=== PATIENT | female | born 1965 | race Caucasian/White ===

== ENCOUNTER 2020-10-31 10:44 | Emergency (ER) | payer MEDICAID, SELFPAY ==
[2020-10-31 10:46] VITALS: BP 148/72; PULSE 76; RESP 16; TEMP 36.9; O2SAT 98; BMI 28.3
--- NOTE | 2020-10-31 11:27 | HMH.EDUTC ---
[facility] [facility] [place] Clinical Impression: Neuropathic pain Leg weakness Qualifiers: Laterality: bilateral Qualified Code(s): R29.898 - Other symptoms and signs involving the musculoskeletal system Disposition: Home, Self-Care Condition on Discharge: Good Additional Instructions: Follow up with the neurologist regarding your symptoms. You will need an EMG. A neurologist is the one that can order that and evaluate you further. Follow up with your primary care provider. Take naproxen for pain. I sent in a prescription to your pharmacy. GO TO THE ER FOR ANY WORSENING SYMPTOMS OR CONCERNS Prescriptions: Naproxen [Naproxen 500mg tab] 500 mg PO BIDP PRN #30 tab PRN Reason: Moderate Pain Transmission Status: Received by [facility] Referrals: Lillian Callejas APRN [Primary Care Provider] - Katherine Gomez MD [Staff Physician] - Time of Disposition: 11:56 Medical Decision Making - Medical Records Medical records reviewed: No: I reviewed the patient's medical records. - Sal Inquiry Pt receiving controlled substance: No Vital Signs: 10/31/20 10:46 10/31/20 11:57 Temperature 98.4 F 98.4 F Temperature Source Oral Pulse Rate 76 Pulse Rate [Right] 76 Respiratory Rate 16 16 Blood Pressure 148/72 H Blood Pressure [Right Arm] 148/72 H Blood Pressure Mean [Right Arm] 97 Blood Pressure Source Automatic Cuff Blood Pressure Source [Right Arm] Automatic Cuff Blood Pressure Position Sitting Blood Pressure Position [Right Arm] Sitting 02 Sat by Pulse Oximetry 98 Oxygen Delivery Method Room Air Room Air [facility] [place] - General Stated complaint: toes shayy, 10-21-20 leg numbness Time Seen by Provider: 10/31/20 11:27 Mode of Arrival: Ambulatory Source of Information: Patient Limitations: No Limitations Description of Symptoms (Recalled from Triage Doc. by RN): Pt advises she has been experinecing numbness in her hands and legs that has been ongoing for 2 years. HAs numbness whe she tries to grasp something, advises she fell the other day because her legs went numb HEENT Symptoms (Recalled from RN notes): No Resp Symptoms (Recalled from RN notes): No Skin Symptoms (Recalled from RN notes): No MS Symptoms (Recalled from RN notes): No Functional Status (Recalled from RN notes): na - History of Present Illness Provider Complaint: She has been having frequent symptoms of leg weakness, foot numbness, and hand numbness. Her symptoms have been equal bilaterally. - Related Data Home Medications Medication Instructions Recorded Confirmed Buspirone HCl [Buspirone 30mg 30 mg PO DAILY 12/08/18 12/08/18 Tablets] Cetirizine HCl [Zyrtec] 10 mg PO DAILY 12/08/18 12/08/18 Diclofenac Sodium [Diclofenac 75mg 75 mg PO BID 12/08/18 12/08/18 Tab] Fluoxetine HCl 40 mg PO DAILY 12/08/18 12/08/18 Metoprolol Tartrate [Lopressor 25 mg PO BID 12/08/18 12/08/18 25mg tablet] Multivit,Calc,Mins/Iron/Folic 1 each PO DAILY 12/08/18 12/08/18 [Women's Daily Caplet] Pantoprazole Sodium [Protonix 40mg 40 mg PO DAILY 12/08/18 12/08/18 tablet] Pravastatin Sodium 80 mg PO DAILY 12/08/18 12/08/18 Previous Rx's Medication Instructions Recorded hydrOXYzine pamoate [Vistaril 25mg 25 mg PO Q6HP PRN #40 cap 05/14/18 capsule] methylPREDNISolone [Medrol 4mg 4 mg PO DIRECTED #21 tab 12/08/18 tab] Naproxen [Naproxen 500mg tab] 500 mg PO BIDP PRN #30 tab 10/31/20 Allergies Allergy/AdvReac Type Severity Reaction Status Date / Time No Known Allergies Allergy Verified 05/14/18 18:24 - Worker's Comp Is this a Worker's Comp case?: No [facility] History - Hepatitis A Screen Drug use history?: No High risk sexual behaviors?: No History of sexually transmitted infection?: No Currently employed?: No Childcare worker?: No Do you have indoor plumbing?: Yes Do you have electricity?: Yes Attestation statement:: This patient has been screened for Hepatitis A risk factors.
[2020-10-31 11:57] VITALS: BP 148/72; PULSE 76; RESP 16; TEMP 36.9; O2SAT 98
== END 2020-10-31 11:59 | disposition home or self-care (01) ==
PROVIDERS: Emergency Provider Nurse Practitioner Family; PCP Nurse Practitioner Family
DX: M79.2 Neuralgia and neuritis, unspecified (principal); F17.210 Nicotine dependence, cigarettes, uncomplicated
CPT/HCPCS: 99202; G0463

== ENCOUNTER → 2021-10-30 06:53 | Outpatient (CLI) | payer MEDICAID, SELFPAY | PROVIDERS: PCP Family Medicine; Visit Provider Family Medicine | DX: B37.0 Candidal stomatitis (principal) | CPT/HCPCS: 87070 ==

== ENCOUNTER → 2021-12-19 11:10 | Outpatient (CLI) | payer MEDICAID, SELFPAY ==
--- NOTE | 2021-12-19 11:23 | XR_ITS ---
FINAL REPORT CLINICAL HISTORY: back pain, weakness, brisk reflexes FINDINGS: LUMBAR SPINE Three views demonstrate no acute fracture. There is advanced disc space narrowing at L5-S1 with endplate sclerosis and vacuum disc phenomenon. There is no malalignment. IMPRESSION: Degenerative change at L5-S1. Reviewed, Interpreted and Dictated by Ramón Beth MD Transcribed by Genesis Caldera Authenticated and [facility]
--- NOTE | 2021-12-19 11:23 | XR_ITS ---
FINAL REPORT CLINICAL HISTORY: neck pain FINDINGS: SPINE CERVICAL COMPLETE/FLEXION & EXT Seven views of the cervical spine were obtained. There is moderate disc space narrowing at C3-4, C4-5, and C5-6. There is mild posterior osteophyte formation at C6-7. There is no evidence of instability with flexion and extension maneuvers. IMPRESSION: Degenerative change without acute process. Reviewed, Interpreted and Dictated by Ramón Beth MD Transcribed by Genesis Caldera Authenticated and [facility]
[2021-12-19 12:00] LABS: Basophils # 0.1 K/mm3 (0-0.2); Eosinophils # 0.3 K/mm3 (0.0-0.4); Eosinophils % 4.9 % (0.1-12.0); Hematocrit 42.3 % (37.0-47.0); Hemoglobin 13.9 g/dL (12.2-16.2); Lymphocytes # 2.7 K/mm3 (0.7-4.5); Lymphocytes % 44.3 % (10-50); Mean Corpuscular HGB Conc 32.8 g/dL (31.8-35.4); Mean Corpuscular Hemoglobin 29.2 pg (27.0-31.2); Mean Corpuscular Volume 89.1 fl (81-99); Mean Platelet Volume 8.3 fl (7.4-10.4); Monocytes # 0.3 K/mm3 (0.1-1.0); Monocytes % 4.1 % (1.7-9.3); Neutrophils # 2.8 K/mm3 (1.8-7.8); Neutrophils % 44.8 % (37.0-80.0); Platelet Count 288 K/mm3 (142-424); Red Blood Count 4.74 M/mm3 (4.20-5.40); White Blood Count 6.2 K/mm3 (4.8-10.8)
[2021-12-19 12:24] LABS: Alanine Aminotransferase 23 U/L (12-78); Albumin Level 4.4 g/dl (3.5-5.0); Albumin/Globulin Ratio 1.8 (1.1-1.8); Alkaline Phosphatase 73 U/L (38-126); Aspartate Amino Transferase 28 U/L (14-36); Blood Urea Nitrogen 14 mg/dl (7-17); Calcium 9.4 mg/dl (8.4-10.2); Carbon Dioxide 25 mmol/L (22.0-30.0); Chloride 102 mmol/L (98-107); Creatine Kinase 70 U/L (30-135); Estimated Glomerular Filt Rate 65 ml/min (>60); GFR (African American) 79 ML/MIN (>60); Globulin 2.4 g/dL (1.3-3.2); Glucose 105 mg/dl (74-100); Sodium 142 mmol/L (136-145); Total Protein,Serum 6.8 g/dl (6.3-8.2)
[2021-12-19 12:25] LABS: Bilirubin,Total 0.1 mg/dl (0.2-1.3)
[2021-12-19 12:26] LABS: Erythrocyte Sedimentation Rate 11 mm/hr (0-30)
[2021-12-19 12:56] LABS: Thyroid Stimulating Hormone 2.21 uIU/mL (0.465-4.68)
[2021-12-19 13:32] LABS: Vitamin B12 698 pg/mL (239-931)
[2021-12-20 08:43] LABS: C-Reactive Protein < 1.0 mg/L (0-4)
[2021-12-20 13:10] LABS: Aldolase 3.4 U/L (3.3-10.3)
[2022-01-02 10:01] LABS: Antinuclear Antibodies (ANA) NEGATIVE
== END ==
PROVIDERS: PCP Family Medicine; Visit Provider Nurse Practitioner Family
DX: M54.2 Cervicalgia (principal); M54.50 Low back pain, unspecified; G89.29 Other chronic pain; F39 Unspecified mood [affective] disorder; M62.89 Other specified disorders of muscle; R29.2 Abnormal reflex; R29.898 Other symptoms and signs involving the musculoskeletal system; R40.0 Somnolence; R53.1 Weakness; Z86.69 Personal history of other diseases of the nervous system and sense organs
CPT/HCPCS: 36415; 72052; 72100; 80053; 82085; 82550; 82607; 82746; 84443; 85025; 85651; 86038; 86140

== ENCOUNTER → 2021-12-28 12:59 | Outpatient (CLI) | payer MEDICAID, SELFPAY ==
--- NOTE | 2021-12-28 13:00 | MR_ITS ---
FINAL REPORT CLINICAL HISTORY: neck pain w/ brisk reflexes, weakness. bilateral arm pain, numbness, and tingling. FINDINGS: Multi planar MR imaging was obtained of the cervical spine. There is abnormal decreased signal throughout the cervical discs, most evident at C4-5, C5-6, and C6-7. There is loss of the normal cervical lordosis. The vertebrae are of normal height. There is no malalignment. The cervical cord demonstrates normal signal and configuration. C2-C3: There is no evidence of significant disc bulge or protrusion. There is no significant facet hypertrophy. C3-C4: There is no evidence of significant disc bulge or protrusion. There is no significant facet hypertrophy. C4-C5: Mild broad-based midline disc protrusion is present. There is mild compromise of the spinal canal. C5-C6: Moderate midline disc protrusion is present. There is moderate compromise of the spinal canal. Finding is well seen on image 35 of series 9. C6-C7: Mild diffuse disc bulge is present. The neural foramina are adequately patent. C7-T1: There is no evidence of significant disc bulge or protrusion. There is no significant facet hypertrophy. IMPRESSION: Midline disc protrusions at C4-5 and C5-6 with compromise of the spinal canal, most evident at C5-6. Reviewed, Interpreted and Dictated by Ramón Beth MD Transcribed by Genesis Caldera Authenticated and [facility]
--- NOTE | 2021-12-28 13:50 | US_ITS ---
FINAL REPORT CLINICAL HISTORY: chandler lower ext pain, weakness, falls, smoker FINDINGS: ANKLE-BRACHIAL PRESSURE INDICES Pressure indices are as follows: RIGHT LOWER EXTREMITY: Ankle-brachial pressure index: 1.1 Comments: Normal LEFT LOWER EXTREMITY: Ankle-brachial pressure index: 1.1 Comments: Normal CONCLUSION: No evidence of significant obstructive peripheral vascular disease of the lower extremities Reviewed, Interpreted and Dictated by Ramón Beth MD Transcribed by Miriam Duron Authenticated and [facility]
== END ==
PROVIDERS: PCP Family Medicine; Visit Provider Nurse Practitioner Family
DX: G89.29 Other chronic pain (principal); M54.2 Cervicalgia; M54.50 Low back pain, unspecified; M62.89 Other specified disorders of muscle; R29.2 Abnormal reflex; R29.898 Other symptoms and signs involving the musculoskeletal system; R53.1 Weakness
CPT/HCPCS: 72141; 76376; 93923

== ENCOUNTER → 2022-02-06 16:39 | Outpatient (CLI) | payer MEDICAID, SELFPAY ==
--- NOTE | 2022-02-06 16:39 | MR_ITS ---
PROCEDURE INFORMATION: Exam: MR Lumbar Spine Without Contrast Exam date and time: 02/06/2022 5:42 PM Age: 56 years old Clinical indication: Low back pain; Additional info: Pain, weakness, abn exam TECHNIQUE: Imaging protocol: Magnetic resonance imaging of the lumbar spine without contrast. COMPARISON: CR XR LUMBAR SPINE 2-3V 12/19/2021 11:42 AM FINDINGS: Bones/joints: There are moderate degenerative changes of the spine. Endplate osteophytes and facet arthropathy. Multilevel disc space narrowing. Spinal cord: Visualized cord, conus medullaris and cauda equina are unremarkable without compression. L1-L2: No significant disc disease. No significant spinal canal stenosis. No neural foraminal stenosis. L2-L3: Disc space narrowing and desiccation. L3-L4: Broad-based disc bulge. Mild disc space narrowing and desiccation. Borderline canal narrowing. Moderate narrowing of the left neural foramen. Mild canal narrowing. L4-L5: Broad-based disc bulge. Moderate to severe narrowing of the right neural foramen and moderate narrowing of the left neural foramen. Moderate canal narrowing. L5-S1: Mild Modic type 1 changes. Broad-based small disc bulge. Borderline canal narrowing. Severe narrowing of the left neural foramen and mild narrowing of the right neural foramen Soft tissues: Unremarkable. IMPRESSION: No acute findings. DJD.
== END ==
PROVIDERS: PCP Family Medicine; Visit Provider Nurse Practitioner Family
DX: G89.29 Other chronic pain (principal); M54.2 Cervicalgia; M54.50 Low back pain, unspecified; M62.89 Other specified disorders of muscle; R29.2 Abnormal reflex; R29.898 Other symptoms and signs involving the musculoskeletal system; R53.1 Weakness
CPT/HCPCS: 72148; 76376

== ENCOUNTER → 2022-02-21 19:54 | Outpatient (CLI) | payer MEDICAID, SELFPAY | PROVIDERS: PCP Family Medicine; Visit Provider Nurse Practitioner Family | DX: G47.33 Obstructive sleep apnea (adult) (pediatric) (principal); R40.0 Somnolence; R06.83 Snoring | CPT/HCPCS: 95810 ==

== ENCOUNTER → 2022-03-28 14:45 | Outpatient (CLI) | payer MEDICAID, SELFPAY ==
[2022-03-28 16:59] LABS: Magnesium 2.1 mg/dl (1.6-2.3)
== END ==
PROVIDERS: PCP Family Medicine; Visit Provider Family Medicine
DX: M62.89 Other specified disorders of muscle (principal)
CPT/HCPCS: 83735

== ENCOUNTER → 2022-04-10 12:08 | Outpatient (CLI) | payer MEDICAID, SELFPAY ==
--- NOTE | 2022-04-10 12:19 | ECG_ITS ---
APPROVED REPORT Exam: Resting ECG HR:67 bpm ECG Measurements Heart Rate 67 AXES MN 162 P 37 QRSd 98 QRS 18 QT 366 T 45 QTc 382 Conclusion SINUS RHYTHM WITH OCCASIONAL SUPRAVENTRICULAR PREMATURE COMPLEXES BORDERLINE ECG UNCONFIRMED REPORT Electronically signed by : Gonzalo Arana MD 04/10/2022 20:27:20
[2022-04-10 12:46] LABS: Basophils # 0.1 K/mm3 (0-0.2); Eosinophils # 0.4 K/mm3 (0.0-0.4); Eosinophils % 5.4 % (0.1-12.0); Hematocrit 42.3 % (37.0-47.0); Hemoglobin 14.2 g/dL (12.2-16.2); Lymphocytes # 2.6 K/mm3 (0.7-4.5); Lymphocytes % 39.4 % (10-50); Mean Corpuscular HGB Conc 33.6 g/dL (31.8-35.4); Mean Corpuscular Volume 89.4 fl (81-99); Mean Platelet Volume 7.9 fl (7.4-10.4); Monocytes # 0.3 K/mm3 (0.1-1.0); Monocytes % 3.8 % (1.7-9.3); Neutrophils # 3.3 K/mm3 (1.8-7.8); Neutrophils % 49.4 % (37.0-80.0); Platelet Count 296 K/mm3 (142-424); Red Blood Count 4.73 M/mm3 (4.20-5.40); Red Cell Distribution Width 14.6 % (11.5-17.5); White Blood Count 6.6 K/mm3 (4.8-10.8)
[2022-04-10 13:05] LABS: Chloride 107 mmol/L (98-107); Sodium 140 mmol/L (136-145)
[2022-04-10 13:06] LABS: Potassium 3.6 mmoL/L (3.5-5.1)
[2022-04-10 13:09] LABS: Anion Gap 9.6 mEq/L (5-15); Blood Urea Nitrogen 9 mg/dl (7-17); Calcium 9.1 mg/dl (8.4-10.2); Carbon Dioxide 27 mmol/L (22.0-30.0); Estimated Glomerular Filt Rate 52 ml/min (>60); GFR (African American) 62 ML/MIN (>60); Glucose 101 mg/dl (74-100)
== END ==
PROVIDERS: PCP Family Medicine; Visit Provider Student in an Organized Health Care Education/Training Program
DX: Z01.818 Encounter for other preprocedural examination (principal)
CPT/HCPCS: 36415; 80048; 85025; 93005

== ENCOUNTER 2022-04-25 05:36 | Day surgery (SDC) | payer MEDICAID, SELFPAY ==
[2022-04-24 14:04] VITALS: BMI 29.7
[2022-04-25 06:18] VITALS: BP 122/74; PULSE 61; RESP 18; TEMP 36.5; O2SAT 98
--- NOTE | 2022-04-25 07:01 | P.PN_ITS ---
[facility] Disclaimer: The information contained in this section may have been updated after the patient was seen, as this information can be updated by other users. Medical History Anxiety Chronic GERD Cystic fibrosis carrier Depression Hyperlipidemia Hypertension Hypothyroid Preoperative clearance Surgical History History of bilateral tubal ligation Previous back surgery Family History Father Hypertension Stroke Coronary artery disease Social History (Updated 04/25/22 @ 06:28 by Katie Adame RN) Smoking Status: Current every day smoker tobacco type: cigarettes packs per day: 1 years smoked: 18 alcohol intake: never substance use type: denies use current occupational status: disabled Travel in the last 8 weeks: None household members: none housing: apartment [facility] Anesthesia Checklist Patient Identification Patient Identification: Arm Band Structural Data Admitted From: Home Planned Operative Procedure/s: Drug Induced Sleep Endoscopy Consent for Planned Operative Procedure(s) Verified: Yes Verified Documents: Surgical Consent and History and Physical NPO Status Verified Time NPO: 00:00 Additional verifications Anesthesia Reactions: No Hx Blood Transfusions: No Blood Transfusion Reaction: No Airway Assessment C-Spine Mobility Assessed: Yes TMJ Mobility Assessed: Yes Dentition: Good Dentition Neurological Assessment Level of Consciousness: Awake and Alert Anesthesia Plan Anesthesia Risk discussed: Yes Anesthesia Plan: Verified ASA Class: II Anesthesia Type: MAC
--- NOTE | 2022-04-25 07:58 | EXP.OP.NOTE ---
Date of procedure: 04/25/22 Pre-op Diagnosis:: obstructive sleep apnea Post-op Diagnosis:: same Procedure performed:: drug induced sleep endoscopy Surgeon:: Dipak Morgan MD Anesthesia: MAC Estimated blood loss (mL): 0 Operative findings:: The patient had complete concentric collapse of her V1. She is not a candidate for the hypoglossal nerve stimulator based off today's findings. She would be a candidate for an expansion pharyngoplasty. Operative note:: The patient was brought to the OR, laid in the supine position, we slowly uptitrated a propofol drip until patient was snoring and intermittently apneic. Less than a cc of plain lidocaine mixed with Afrin was instilled into her naris. Using the flexible fiberoptic laryngoscope then inserted through her naris and examined her airway. Patient had complete concentric collapse of her velum. She had complete lateral wall collapse of her oropharynx. There was minimal tongue base collapse. There is no significant epiglottic collapse. The scope was then removed and patient was turned back over anesthesia to be awoken. Condition: stable Disposition: PACU Complications:: none
[2022-04-25 08:00] VITALS: BP 88/62; PULSE 72; RESP 16; TEMP 36.2; O2SAT 98
[2022-04-25 08:10] VITALS: BP 95/61; PULSE 69; RESP 14; O2SAT 92
[2022-04-25 08:20] VITALS: BP 105/71; PULSE 69; RESP 16; O2SAT 92
[2022-04-25 08:30] VITALS: BP 118/71; PULSE 69; RESP 16; O2SAT 93
== END 2022-04-25 08:30 | disposition home or self-care (01) ==
PROVIDERS: PCP Family Medicine; Visit Provider Student in an Organized Health Care Education/Training Program
PROC: (CPT 42975; principal; 2022-04-25 07:30)
DX: G47.33 Obstructive sleep apnea (adult) (pediatric) (principal); F17.210 Nicotine dependence, cigarettes, uncomplicated; Z79.899 Other long term (current) drug therapy
CPT/HCPCS: 42975

== ENCOUNTER 2022-10-31 07:56 | Day surgery (SDC) | payer MEDICAID, SELFPAY ==
[2022-10-29 11:25] VITALS: BMI 31.4
--- NOTE | 2022-10-29 11:35 | SUR.PREOP ---
Called pt to notify her of change in arrival time. Pt verbalized understanding.
[2022-10-31] VITALS (13 sets, daily range): BP systolic 105–193; BP diastolic 57–95; PULSE 50–95; RESP 16–18; TEMP 36.1–36.6; O2SAT 91–95
--- NOTE | 2022-10-31 08:55 | ECG_ITS ---
APPROVED REPORT Exam: Resting ECG HR:48 bpm ECG Measurements Heart Rate 48 AXES OH 181 P 52 QRSd 93 QRS 27 QT 443 T 47 QTc 411 Conclusion SINUS BRADYCARDIA BORDERLINE ECG UNCONFIRMED REPORT Electronically signed by : Gonzalo Arana MD 11/01/2022 07:51:25
--- NOTE | 2022-10-31 09:20 | EXP.ANES.CKL ---
[facility] Disclaimer: The information contained in this section may have been updated after the patient was seen, as this information can be updated by other users. Medical History Allergic rhinitis Anxiety Chronic GERD Cystic fibrosis carrier Depression Deviated nasal septum Hyperlipidemia Hypertension Hypothyroid Nerve damage Preoperative clearance Restless leg syndrome Scoliosis Sinus headache Skin cancer Sleep apnea Urinary tract infection Surgical History History of bilateral tubal ligation Previous back surgery [place] teeth removed Family History Father Coronary artery disease Hypertension Stroke Sister Lung cancer Social History Smoking Status: Current every day smoker tobacco type: cigarettes packs per day: 1 years smoked: 18 alcohol intake: never substance use type: denies use current occupational status: disabled Travel in the last 8 weeks: None household members: none housing: apartment [facility] Anesthesia Checklist Patient Identification Patient Identification: Arm Band and Verbal (Name & ) Structural Data Admitted From: Home Planned Operative Procedure/s: Tonsillectomy and pharyngoplasty NPO Status Verified Time NPO: 00:00 Additional verifications Anesthesia Reactions: No Hx Blood Transfusions: No Blood Transfusion Reaction: No Airway Assessment Mallampati Score:: Class III C-Spine Mobility Assessed: Yes TMJ Mobility Assessed: Yes Dentition: Good Dentition Neurological Assessment Level of Consciousness: Awake Hx Seizures: No Numbness or tingling in extremities: No Anesthesia Plan Anesthesia Risk discussed: Yes Anesthesia Plan: Verified ASA Class: III Anesthesia Type: General
[2022-10-31 09:31] LABS: Basophils # 0.1 K/mm3 (0-0.2); Basophils % 1.4 % (0.1-2.0); Eosinophils # 0.3 K/mm3 (0.0-0.4); Eosinophils % 5.7 % (0.1-12.0); Hematocrit 41.3 % (37.0-47.0); Hemoglobin 13.6 g/dL (12.2-16.2); Lymphocytes # 2.9 K/mm3 (0.7-4.5); Lymphocytes % 52.1 % (10-50); Mean Corpuscular HGB Conc 32.9 g/dL (31.8-35.4); Mean Corpuscular Hemoglobin 29.2 pg (27.0-31.2); Mean Corpuscular Volume 88.7 fl (81-99); Mean Platelet Volume 8.5 fl (7.4-10.4); Monocytes # 0.3 K/mm3 (0.1-1.0); Monocytes % 5.3 % (1.7-9.3); Neutrophils % 35.6 % (37.0-80.0); Platelet Count 230 K/mm3 (142-424); Red Blood Count 4.66 M/mm3 (4.20-5.40); Red Cell Distribution Width 14.6 % (11.5-17.5); White Blood Count 5.6 K/mm3 (4.8-10.8)
[2022-10-31 09:35] LABS: MANUAL DIFFERENTIAL MANUAL DIFFERENTIAL (MANUAL DIFF)
[2022-10-31 09:37] LABS: Chloride 108 mmol/L (98-107); Sodium 140 mmol/L (136-145)
[2022-10-31 09:40] LABS: Blood Urea Nitrogen 17 mg/dl (7-17); Creatinine Clearance Estimated 83 mL/min (50-200); Estimated Glomerular Filt Rate 58 ml/min (>60); GFR (African American) 70 ML/MIN (>60)
[2022-10-31 09:41] LABS: Calcium 8.9 mg/dl (8.4-10.2); Carbon Dioxide 24 mmol/L (22.0-30.0); Glucose 97 mg/dl (74-100)
[2022-10-31 10:38] LABS: Eosinophils % 4 % (0-3); Lymphocytes % 49 % (10-50); Monocytes % 7 % (2-9); Neutrophils % 37 % (42-76); Platelet Estimate Normal; RBC Morphology Normal; Total Cells Counted 100
--- NOTE | 2022-10-31 11:16 | P.OP_ITS ---
Date of procedure: 10/31/22 Pre-op Diagnosis:: GARRETT tonsilar hypertrophy Post-op Diagnosis:: same Procedure performed:: tonsillectomy, expansion palate pharyngoplasty Surgeon:: Dipak Morgan MD PIE FILLING MIXER:: Clinton Hood Anesthesia: GETA Estimated blood loss (mL): 15 Operative findings:: 2+ tonsils hypertrophied uvula Operative note:: The patient was brought to the OR and laid in supine position. General anesthesia was induced. The patient was prepped and draped in the usual fashion. Their mouth was suspended with a Dinorah-Alexander mouth gag. Examination of the palate revealed no palatal clefts. The palate was elevated with a red rubber catheter. Mirror examination revealed? no significant adenoid tissue. I then turned my attention towards the tonsils. The patient had 2+ tonsils bilaterally. First the right tonsil, and then the left tonsil were excised with Bovie cautery. Hemostasis was then achieved with suction cautery. I then started the expansion palate pharyngoplasty. First on the left I isolated the palatal pharyngeus muscle in the tonsillar fossa. It was divided approximately one-third of the way down inferiorly. Using Vicryl suture I then sutured the inferior aspect of the muscle out laterally to the periosteum around the ramus of the mandible. I sutured the superior aspect of the muscle up to the hamulus of the hard palate. I then performed the same procedure on the right side. Patient had a fairly elongated hypertrophied uvula. The distal tip of that was excised and then some of the redundant minor salivary tissue from within the uvula and soft palate was removed. I then reflected forward the posterior aspect of the mucosa and sutured it with chromic back to the anterior aspect. Chromic sutures were then used to reapproximate the mucosa of the tonsillar fossa. Care was taken during this process to make sure patient can still make contact between the palate and the posterior oropharynx to help minimize the risk of postoperative VPI. The patient's nose and mouth were then thoroughly irrigated and suctioned out. Marcaine-soaked tonsil balls were placed in the tonsillar fossae for local anesthetic. These were then removed. Stomach was suctioned with an OG tube. All counts were confirmed correct. They were then turned back over to anesthesia to be awoken and extubated. Condition: stable Disposition: PACU Complications:: none
--- NOTE | 2022-10-31 11:21 | P.PNANES_ITS ---
[facility] Anesthesia Record Part I Anesthesia Record I Intake, IV Amount: 1,500 Hydration: Adequate Estimated blood loss (mL): 5 Urine output (mL): 0 Blood Products used (#): none Blood Pressure: 106/57 SaO2: 92 Pulse Rate: 65 Airway Patency: Patent Respiratory Rate: 16 Temperature: 97.4 F Patient is:: Drowsy and Stable Stable to PACU at:: 11:15
--- NOTE | 2022-10-31 14:00 | EXP.ANES.II ---
[facility] Anesthesia Record Part II Anesthesia Record Part II Discharge Time: 11:54 Destination: Surgical Day Care (OP Surgery) PACU nurse assessment reviewed?: Yes Patient Condition:: Good Anesthesia Complications:: None Swallowing reflex intact?: Yes Airway Patency: Patent Cyanosis?: No Blood Pressure: 135/89 SaO2: 95 Respiratory Rate: 16 Pulse Rate: 69 Temperature: 97.8 F Mental Status: Alert & Oriented Pain level:: 3 Nausea and/or vomitting:: None Intake, IV Amount: 0 Hydration: Adequate
== END 2022-10-31 13:00 | disposition home or self-care (01) ==
PROVIDERS: PCP Family Medicine; Visit Provider Student in an Organized Health Care Education/Training Program
PROC: (CPT 42826; principal; 2022-10-31 09:30)
DX: J35.1 Hypertrophy of tonsils (principal); K13.79 Other lesions of oral mucosa; G47.33 Obstructive sleep apnea (adult) (pediatric)
CPT/HCPCS: 42826; 42950; 36415; 80048; 85007; 85025; 93005; J2405

== ENCOUNTER 2022-11-02 03:51 | Emergency (ER) | payer MEDICAID, SELFPAY ==
[2022-11-02 03:52] VITALS: BP 170/92; PULSE 67; RESP 22; TEMP 36.2; O2SAT 97
[2022-11-02 04:01] VITALS: BP 154/86; PULSE 66; RESP 20; O2SAT 95
--- NOTE | 2022-11-02 04:06 | HMH.EDGENADL ---
Discharge Plan Disposition Patient Disposition: Xfer Short-Term Hosp Chief Complaint: Epistaxis Prescriptions Prescriptions: No Action Linzess 290 mcg capsule 290 mcg PO .COMPLEX Rx Instructions: 290 mcg orally EVERY OTHER DAY; alprazolam [Xanax] 0.25 mg tablet 0.25 mg PO TID Qty: 90 2RF metoprolol succinate 50 mg tablet extended release 24 hr 100 mg PO DAILY 30 Days Qty: 60 2RF terazosin 5 mg capsule 5 mg PO DAILY cetirizine 10 mg tablet See Rx Instructions .ROUTE .COMPLEX Rx Instructions: TAKE 1 TABLET BY MOUTH EVERY DAY citalopram [Celexa] 20 mg tablet 20 mg PO DAILY pravastatin 80 mg tablet 80 mg PO DAILY Rx Instructions: TAKE 1 TABLET BY MOUTH EVERY DAY pantoprazole [Protonix] 40 mg tablet,delayed release (DR/EC) 40 mg PO DAILY Rx Instructions: TAKE 1 TABLET BY MOUTH ONCE DAILY gabapentin 100 mg capsule 100 mg PO Q8H fluticasone propionate [Flonase Allergy Relief] 50 mcg/actuation spray,suspension 1 spray intranasal DAILY Rx Instructions: administer into each nostril ondansetron HCl [ondansetron HCl] 4 mg tablet 4 mg PO TIDP PRN (Reason: Nausea) Qty: 10 0RF prednisolone [Prednisolone] 15 mg/5 mL solution 15 mg PO DAILY 3 Days Qty: 15 0RF hydrocodone-acetaminophen 7.5-325 mg/15 mL Solution 15 ml PO Q6H PRN (Reason: SEVERE PAIN.) Qty: 420 0RF Clinical Impressions Clinical Impression: Post-tonsillectomy hemorrhage Instructions Patient Instructions: DI for Nosebleed Discharge ED Provider: Fortino Bradley General Adult HPI General Chief complaint: Epistaxis Stated complaint: Bleeding from surgical site in throat Time Seen by Provider: 11/02/22 03:53 Mode of Arrival: Ambulatory Source of Information: Patient Limitations: No Limitations Description of Symptoms (Recalled from ER Triage Doc. by RN): Patient had surgery to remove tonsils and adnoids on Saturday. Woke up this morning to bleeding in throat. History of Present Illness HPI narrative: 57-year-old female history of hypertension, hyperlipidemia, anxiety, depression, recent tonsillectomy and adenoidectomy on 10/31 presenting with postop hemorrhage. Patient states that she was lying down to go to sleep just prior to arrival on 11/02 and began feeling blood going down her throat. Began gagging, vomiting and coughing up large amounts of bright red blood. Does not believe she aspirated any. No lightheadedness, chest pain, shortness of breath, and seems to be largely hemostatic on arrival. Patient presented to [facility] ED with a bowl containing about 200 mL bright red blood. Related Data Home Medications Medication Instructions Recorded Confirmed linaclotide 290 mcg capsule 290 mcg PO .COMPLEX constipation 02/28/22 10/31/22 (Linzess) cetirizine 10 mg tablet See Rx Instructions .Route 10/29/22 10/31/22 .COMPLEX . citalopram 20 mg tablet (Celexa) 20 mg PO DAILY . 10/29/22 10/31/22 fluticasone propionate 50 1 spray intranasal DAILY . 10/29/22 10/31/22 mcg/actuation nasal spray,suspension (Flonase Allergy Relief) gabapentin 100 mg capsule 100 mg PO Q8H Pain 10/29/22 10/31/22 pantoprazole 40 mg tablet,delayed 40 mg PO DAILY REFLUX 10/29/22 10/31/22 release (Protonix) pravastatin 80 mg tablet 80 mg PO DAILY Cholesterol 10/29/22 10/31/22 terazosin 5 mg capsule 5 mg PO DAILY . 10/29/22 10/31/22 Previous Rx's Medication Instructions Recorded metoprolol succinate 50 mg 100 mg PO DAILY BP 30 days #60 tabs 10/07/22 tablet,extended release 24 hr alprazolam 0.25 mg tablet (Xanax) 0.25 mg PO TID anxiety #90 tabs 10/25/22 hydrocodone 7.5 mg-acetaminophen 15 ml PO Q6H PRN SEVERE PAIN. #420 10/31/22 325 mg/15 mL oral solution mL ondansetron HCl 4 mg tablet 4 mg PO TIDP PRN Nausea #10 tabs 10/31/22 prednisolone 15 mg/5 mL oral 15 mg (5 mL) PO DAILY 3 days #15 mL 10/31/22 solution Allergies Allergy/AdvReac Type Severity Reaction St
[2022-11-02 04:17] LABS: Basophils % 0.3 % (0.1-2.0); Eosinophils # 0.1 K/mm3 (0.0-0.4); Eosinophils % 0.7 % (0.1-12.0); Hematocrit 43.3 % (37.0-47.0); Hemoglobin 13.9 g/dL (12.2-16.2); Lymphocytes # 1.6 K/mm3 (0.7-4.5); Lymphocytes % 14.8 % (10-50); Mean Corpuscular Hemoglobin 28.6 pg (27.0-31.2); Mean Corpuscular Volume 89.3 fl (81-99); Mean Platelet Volume 8.9 fl (7.4-10.4); Monocytes # 0.3 K/mm3 (0.1-1.0); Monocytes % 2.7 % (1.7-9.3); Neutrophils # 8.9 K/mm3 (1.8-7.8); Neutrophils % 81.6 % (37.0-80.0); Platelet Count 271 K/mm3 (142-424); Red Blood Count 4.85 M/mm3 (4.20-5.40); Red Cell Distribution Width 14.5 % (11.5-17.5)
[2022-11-02 04:21] LABS: Chloride 106 mmol/L (98-107); Potassium 4.1 mmoL/L (3.5-5.1); Sodium 141 mmol/L (136-145)
[2022-11-02 04:23] LABS: Alanine Aminotransferase 31 U/L (12-78); Blood Urea Nitrogen 16 mg/dl (7-17); Creatinine Clearance Estimated 80 mL/min (50-200); Estimated Glomerular Filt Rate 58 ml/min (>60); GFR (African American) 70 ML/MIN (>60)
[2022-11-02 04:24] LABS: Albumin Level 4.2 g/dl (3.5-5.0); Albumin/Globulin Ratio 1.4 (1.1-1.8); Alkaline Phosphatase 65 U/L (38-126); Anion Gap 14.1 mEq/L (5-15); Aspartate Amino Transferase 39 U/L (14-36); Bilirubin,Total 0.5 mg/dl (0.2-1.3); Calcium 9.1 mg/dl (8.4-10.2); Carbon Dioxide 25 mmol/L (22.0-30.0); Globulin 3.1 g/dL (1.3-3.2); Glucose 139 mg/dl (74-100); Total Protein,Serum 7.3 g/dl (6.3-8.2)
--- NOTE | 2022-11-02 04:40 | PC.NURSE ---
spoke with accepting is Dr. Baugh
--- NOTE | 2022-11-02 04:52 | PC.NURSE ---
Report called to ED, SREE Ogden
[2022-11-02 05:36] VITALS: BP 166/99; PULSE 60; RESP 20; TEMP 36.4; O2SAT 97
== END 2022-11-02 05:37 | disposition short-term general hospital (02) ==
PROVIDERS: Emergency Provider Emergency Medicine
DX: R04.1 Hemorrhage from throat (principal); I10 Essential (primary) hypertension; E78.5 Hyperlipidemia, unspecified; F41.9 Anxiety disorder, unspecified; F32.A Depression, unspecified; K21.9 Gastro-esophageal reflux disease without esophagitis; G47.30 Sleep apnea, unspecified; Z14.1 Cystic fibrosis carrier; Y83.6 Removal of other organ (partial) (total) as the cause of abnormal reaction of the patient, or of later complication, without mention of misadventure at the time of the procedure
CPT/HCPCS: 80053; 85025; 86850; 96361; 96374; 99291; J2405

== ENCOUNTER 2023-05-14 18:02 | Outpatient (CLI) | payer MEDICAID, SELFPAY ==
[2023-05-14 18:15] LABS: Basophils # 0.1 K/mm3 (0-0.2); Basophils % 1.6 % (0.1-2.0); Eosinophils # 0.4 K/mm3 (0.0-0.4); Eosinophils % 5.2 % (0.1-12.0); Hematocrit 43.9 % (37.0-47.0); Hemoglobin 14.5 g/dL (12.2-16.2); Lymphocytes % 44.2 % (10-50); Mean Platelet Volume 9.4 fl (7.4-10.4); Monocytes # 0.4 K/mm3 (0.1-1.0); Monocytes % 5.6 % (1.7-9.3); Neutrophils % 43.4 % (37.0-80.0); Platelet Count 256 K/mm3 (142-424); Red Blood Count 4.99 M/mm3 (4.20-5.40); Red Cell Distribution Width 17.4 % (11.5-17.5); White Blood Count 6.9 K/mm3 (4.8-10.8)
== END 2023-05-14 23:59 ==
LOC: LAB.DROPOF 18:02
PROVIDERS: PCP Family Medicine; Visit Provider Family Medicine
DX: R23.3 Spontaneous ecchymoses (principal)
CPT/HCPCS: 85025

== ENCOUNTER → 2024-08-03 21:52 | Outpatient (CLI) | payer MEDICAID, SELFPAY ==
--- OUTSIDE RECORDS SUMMARY | 2024-08-03 21:55 | XMS_ITS | Clinical Summary ---
Author Organization [facility] Address [address] [place] [address] Care Team Providers Care Radiology Resident Name Role Phone Trinity Padilla DMD Unavailable [phone] DewaynezaynabCarmen simmons E Unavailable Servando Lu MD Primary Care Provider Ella Martinez Unavailable Unavailable Allergies No known active allergies Medications pantoprazole (Protonix) 40 MG EC tablet Take 1 tablet (40 mg) by mouth 1 (one) time each day before breakfast. Do not crush, chew, or split. Active cetirizine (ZyrTEC) 10 MG tablet Take 1 tablet (10 mg) by mouth 1 (one) time each day. Active metoprolol succinate XL (Toprol-XL) 25 MG 24 hr tablet Take 1 tablet (25 mg) by mouth 1 (one) time each day. Do not crush or chew. Active pravastatin (Pravachol) 80 MG tablet Take 1 tablet (80 mg) by mouth 1 (one) time each day. Active fluticasone (Flonase) 50 MCG/ACT nasal spray Administer 1 spray into each nostril 1 (one) time each day. Shake gently. Before first use, prime pump. After use, clean tip and replace cap. Active linaCLOtide (Linzess) 290 MCG capsule Take 1 capsule (290 mcg) by mouth 1 (one) time each day. Active Stool Softener 100 MG capsule 2 Active ALPRAZolam (Xanax) 0.25 MG tablet Take 1 tablet (0.25 mg) by mouth 3 (three) times a day if needed for anxiety. Active citalopram (CeleXA) 20 MG tablet Take 1 tablet (20 mg) by mouth 1 (one) time each day. Active hydroCHLOROthia zide (Microzide) 12.5 MG capsule Take 1 capsule (12.5 mg) by mouth 1 (one) time each day. Active ibuprofen 100 MG/5ML suspension Take 20 mL (400 mg) by mouth every 6 (six) hours. 500 mL Active Active Problems Problem Noted Date Diagnosed Date Carpal tunnel syndrome on both sides 03/09/2022 Resolved Problems Problem Noted Date Diagnosed Date Resolved Date Tonsillar bleed 11/02/2022 11/03/2022 Social History Tobacco Use Types Packs/Day Years Used Date Smoking Tobacco: Every Day Cigarettes 1 14.4 Started: 03/15/2010 Smokeless Tobacco: Former Tobacco Cessation:Ready to Q uit: Not Asked; Counseling Given: Not Answered Alcohol Use Standard Drinks/Week Comments Never 0 (1 standard drink = 0.6 oz pur e alcohol) Comments Unknown Sex and Gender Information Value Date Recorded Sex Assigned at Not on file Legal Sex Female 7:38 PM EDT Gender Identity Not on file Sexual Orientation Not on file Last Filed Vital Signs Vital Sign Reading Time Taken Comments Blood Pressure 162/80 11/03/2022 9:00 AM EDT Pulse 58 11/03/2022 9:00 AM EDT Temperature 36.7 C (98 F) 11/03/2022 9:00 AM EDT Respiratory Rate 16 11/03/2022 4:33 AM EDT Oxygen Saturation 95% 11/03/2022 8:11 AM EDT Inhaled Oxygen Concentration - - Weight 79.4 kg (175 lb) 11/02/2022 3:01 PM EDT Height 162.6 cm (5' 4.02 ) 11/02/2022 3:01 PM ED T Body Mass Index 30.02 11/02/2022 3:01 PM EDT Plan of Treatment Health Maintenance Due Date Last Done Comments [facility]-Depression Screening 1967 [facility]-HIV Screening 1967 [facility]-Hepatitis C Screening 1967 [facility]-/Child/Adol SDOH Screenings 1967 [facility]- SDOH Screenings 1985 [facility]-Adult SDOH Screenings 1985 [facility]-DTaP,Tdap,and Td Vaccine s (1 - Tdap) 1986 [facility]-Hepatitis B Vaccines (1 of 3 - 19+ 3-dose series) 1986 [facility]-Pap Smear 1988 [facility]-Cervical Cancer Screening 1997 [facility]-HPV/Cotest 1997 CT Colonography 2012 Colonoscopy 2012 FIT-DNA 2012 FIT 2012 FOBT 2012 Sigmoidoscopy 2012 [facility]-Colorectal Cancer Screening 2012 [facility]-Breast Cancer Screening 2017 [facility]-Pneumococcal Vaccine: 50 + Years (1 of 1 - PCV) 2017 [facility]-Zoster Vaccines (1 of 2) 2017 Dental X-Ray: Bitewings 12/28/2022 12/27/2021 Dental Oral Exam 04/23/2023 10/22/2022, 02/15/2022 Dental Prophylaxis 04/23/2023 10/22/2022 [id number] Vaccine (1 - 2023- season) 2023 [facility]-Influenza Vaccine (Seaso n Ended) 2024 Dental X-Ray: Full Mouth 12/28/2024 12/27/2021 [facility]-Obesity Intervention Completed 023, 04/30/2022, 03/09/2022 HPV Vaccines Aged Out No longer eligi ble based on patient's age to complete this topic [facility]-HIB Vaccines Aged Out No longer e ligible based on patient's age to complete this topic [facility]-Hepatitis A Vaccines Aged Out No longer eligible based on patient's age to complete this topic UKY-IPV Vaccines Aged Out No longer e ligible based on patient's age to complete this topic [facility]-Rotavirus Vaccines Aged Out No lo nger eligible based on patient's age to complete this topic Procedures Procedure Name Priority Date/Time Associated Diagnosis Comments PROPHYLAXIS - ADULT Routine 10/22/2022 2 :00 PM EDT Encounter for dental examination PERIODIC ORAL EVALUATION - ESTABLISHED PATIENT Routine 10/22/2022 2:00 PM EDT Encounter for dental examination INTRAORAL - COMPLETE SERIES OF RADIOGRAPHIC IMAGES Routine 12/27/2021 8:00 AM EST Encounter to establish care from Last 3 Months or Most Recently Relevant to Health Maintenance Insurance [facility] [place] [address] [place] [address] Advance Directives * Full Code (Latest Code Status on File) Date Activated Date Inactivated Comments 11/02/2022 12:16 PM 11/03/2022 1:50 PM Question Answer Comments Patient has decision-making capacity? Yes Care Teams Radiology Resident Relationship Specialty Start Date End Date Servando Lu MD [address] [place] [address] PCP - General Family Medicine 10/22/22 Trinity Padilla DMD [address] [facility] [address] [place] [id number] Dentist Dental Gantry Rigger 12/28/21 Carmen Major [address] [place] [address] Dentist 03/09/22 Ella Vo Dental Student Dental Gantry Rigger 05/28/23
--- OUTSIDE RECORDS SUMMARY | 2024-08-03 21:55 | XMS_ITS | Encounter Summary ---
Author Organization Healthcare Address [address] [place] [address] Care Team Providers Care Clay Press Operator Name Role Phone Pcp, No Primary Care Provider Unavailkaty e Trinity Padilla DMD Unavailable [phone] Aftab Riggins Unavailable Unavailable Carmen Major Janie Unavailable [phone] Day, Kristen P DMD Unavailable [phone] Servando Lu MD Primary Care Provider Evelyn Ella Gallego Unavailable Unavailable Reason for Referral * Consultation (Routine) - Closed Specialty Diagnoses / Procedures Referred By Veronica chacko Referred To Contact Neurosurgery Diagnoses Low back pain, unspecified back pain laterality, unspecified chronicity, unspecified whether sciatica present Lexi Zamora APRN [address] [place] [address] Phone: tel: fax: Referral ID Status Reason Start Date Expiration Date V isits Requested Visits Authorized [id number] Closed Specialty Services Required 02/07/2022 08/09/2023 1 1 Encounter Details Date Type Department Care Team (Late st Contact Info) Description 02/07/2022 [facility] [address] [place] [address] Lexi Zamora APRN [address] [place] [address] Symptoms referable to back (Primary Dx); Low back pain, unspecified back pain laterality, unspecified chronicity, unspecified whether sciatica present Social History Tobacco Use Types Packs/Day Years Used Date Smoking Tobacco: Every Day Alcohol Use Standard Drinks/Week Comments No 0 (1 standard drink = 0.6 oz pur e alcohol) Comments Unknown Sex and Gender Information Value Date Recorded Sex Assigned at Not on file Legal Sex Female 7:38 PM EDT Gender Identity Not on file Sexual Orientation Not on file documented as of this encounter Plan of Treatment Scheduled Referrals Name Type Priority Associated Diagnoses Order Schedule Ambulatory Referral to Neurosurgery Outpatient Referral Routine Low back pain, unspecified back pain laterality, unspecified chronicity, unspecified whether sciatica present 1 Occurrences starting 02/07/2022 until 08/09/2023 documented as of this encounter Visit Diagnoses Diagnosis Symptoms referable to back- Primary Other symptoms referable to back Low back pain, unspecified back pain laterality, unspecified chronicity, unspecified whether sciatica present documented in this encounter Care Teams Clay Press Operator Relationship Specialty Start Date End Date Pcp, No [address] [place] [address] PCP - General Family Medicine 12/27/21 10/21/22 Servando Lu MD [address] [place] [address] PCP - General Family Medicine 10/22/22 Trinity Padilla DMD [address] [address] Dentist Dental Stations Superintendent 12/28/21 [employer] Dental Student Dental Stations Superintendent 12/28/21 06/05/22 Carmen Major [address] [place] [address] Dentist 03/09/22 Kristen Song DMD [address] [place] [address] Dental Student Dental Stations Superintendent 06/06/22 Ella Vo Dental Student Dental Stations Superintendent 05/28/23 documented as of this encounter
== END ==
LOC: SL 21:53
PROVIDERS: PCP Family Medicine; Referring Provider Specialist; Visit Provider Specialist
DX: G47.33 Obstructive sleep apnea (adult) (pediatric) (principal); G47.36 Sleep related hypoventilation in conditions classified elsewhere
CPT/HCPCS: 95810

== ENCOUNTER 2024-10-08 14:09 | Emergency (ER) | payer MEDICAID, SELFPAY ==
[2024-10-08] VITALS (11 sets, daily range): BP systolic 100–153; BP diastolic 56–100; PULSE 49–58; RESP 12–20; TEMP 36.7–36.8; O2SAT 95–98; BMI 29.2
--- NOTE | 2024-10-08 14:05 | ECG_ITS ---
APPROVED REPORT Exam: Resting ECG HR:56 bpm ECG Measurements Heart Rate 56 AXES IN 143 P 51 QRSd 101 QRS 34 QT 409 T 38 QTc 402 Conclusion Sinus matty Normal axis Normal intervals NO STEMI Electronically signed by : Jose Daniel Sanford, 10/08/2024 17:06:24
--- OUTSIDE RECORDS SUMMARY | 2024-10-08 14:13 | XMS_ITS | Encounter Summary ---
Author Organization Healthcare Address [address] [place] [address] Care Team Providers Care Patient Attendant Name Role Phone Pcp, No Primary Care Provider UnavailCatia Odonnella Tatyana DMD Unavailable [phone] Aftab Riggins Unavailable Unavailable Carmen Major Janie Unavailable [phone] Day, Kristen P DMD Unavailable [phone] Servando Lu MD Primary Care Provider Evelyn Ella Gallego Unavailable Unavailable Aleja Smart DMD Unavailable [phone] Reason for Referral * Consultation (Routine) - Closed Specialty Diagnoses / Procedures Referred By Veronica chacko Referred To Contact Neurosurgery Diagnoses Low back pain, unspecified back pain laterality, unspecified chronicity, unspecified whether sciatica present Lexi Zamora APRN [address] [place] [address] Phone: tel: fax: Referral ID Status Reason Start Date Expiration Date V isits Requested Visits Authorized [id number] Closed Specialty Services Required 02/07/2022 08/09/2023 1 1 Encounter Details Date Type Department Care Team (Late st Contact Info) Description 02/07/2022 [facility] [address] [place] [address] Lexi Zamora APRN [address] [place] [address] Symptoms referable to back (Primary [...] present documented in this encounter Care Teams Patient Attendant Relationship Specialty Start Date End Date Pcp, No [address] [place] [address] PCP - General Family Medicine 12/27/21 10/21/22 Servando Lu MD [address] [place] [address] PCP - General Family Medicine 10/22/22 Trinity Padilla DMD [address] [address] Dentist Dental Flexboard Operator 12/28/21 Aftab [employer]iggins [employer] Dental Student Dental Flexboard Operator 12/28/21 06/05/22 Carmen Major [address] [place] [address] Dentist 03/09/22 Kristen Song DMD [address] [place] [phone] Dental Student Dental Flexboard Operator 06/06/22 Ella Vo Dental Student Dental Flexboard Operator 05/28/23 Aleja Smart, BRIE [address] [facility], [address] [place] [address] Community Relations Rep 08/28/24 documented as of this encounter
--- OUTSIDE RECORDS SUMMARY | 2024-10-08 14:13 | XMS_ITS | Clinical Summary ---
Author Organization [facility] Address [address] [place] [address] Care Team Providers Care Nursing Secretary Name Role Phone Dong Majort Janie Unavailable [phone] Servando Lu MD Primary Care Provider Ella Martinez Unavailable Unavailable Aleja Smart DMD Unavailable [phone] Allergies No known active allergies Medications pantoprazole [...] Date Smoking Tobacco: Every Day Cigarettes 1 14.6 Started: 03/15/2010 Smokeless Tobacco: Former Tobacco Cessation:Ready [...] [facility]-HIV Screening 1967 [facility]-Hepatitis C Screening 1967 [facility]-Infant/Child/Adol SDOH Screenings 1967 [facility]- SDOH Screenings 1985 [...] 04/23/2023 10/22/2022, 02/15/2022 Dental Prophylaxis 04/23/2023 10/22/2022 [id number] Vaccine (1 - season) 2023 [facility]-Influenza Vaccine (#1) 2024 Dental X-Ray: Full Mouth 12/28/2024 12/27/2021 [...] Most Recently Relevant to Health Maintenance Insurance [employer] Advance Directives * Full Code (Latest Code Status on File) Date Activated Date Inactivated Comments 11/02/2022 12:16 PM 11/03/2022 1:50 PM Question Answer Comments Patient has decision-making capacity? Yes Care Teams Nursing Secretary Relationship Specialty Start Date End Date Servando Lu MD [address] [place] [address] PCP - General Family Medicine 10/22/22 Carmen Major [address] [place] [address] Dentist 03/09/22 Ella Vo Dental Student Dental Counselor Supervisor 05/28/23 Aleja Smart DMD [address] [place] [address], [address] [place] [id number] Dry Cleaner Helper 08/28/24
--- NOTE | 2024-10-08 14:16 | ED_ITS ---
<Statement entered by Jose Daniel Sanford DO - 10/09/24 07:51> I was consulted by the VIN, and we discussed the complexity of problems being addressed. I approved the treatment and management plan for this patient's care in the emergency department, thus performing a substantive portion of the medical decision making. I independently evaluated this patient and agree with assessment and plan above. Patient ultimately told me that she did a bunch of weed eating yesterday and feels as if she overused her muscles. This morning she was reaching to grab something off the shelf above her head when she began experiencing left-sided chest pain. She states that her pain is worse with movement of her neck chiefly with touching her chin to her chest or extending the head. She states that her pain does not radiate into the neck, arm, jaw, or back. Her pain is not exertional in nature, but it is worse with certain movements. Given her history of hypertension and tobacco abuse we did feel that it was pertinent to rule out acute coronary syndrome. Workup was initiated with hematologic labs as well as an EKG. EKG showed no evidence of STEMI as outlined below. Her troponins were nonischemic in 2 hours. Given that she had improvement of pain with muscle relaxers and her story some consistent with musculoskeletal pain, we decided to discharge her home with muscle relaxers. At the time of discharge all questions were answered and all parties were agreeable with the decision to discharge. Return precautions were given. Jose Daniel Sanford DO Discharge Plan Disposition Patient Disposition: Home, Self-Care Condition: Good Prescriptions Prescriptions: New cyclobenzaprine 10 mg tablet 10 mg PO TID PRN (Reason: muscle spasm) Qty: 15 0RF No Action albuterol sulfate 90 mcg/actuation HFA aerosol inhaler 2 puff inhalation Q4-6H PRN (Reason: shortness of breath or wheezing) Qty: 8.5 3RF hydrochlorothiazide 12.5 mg tablet 12.5 mg PO QAM Qty: 30 2RF pantoprazole 40 mg tablet,delayed release (DR/EC) See Rx Instructions .ROUTE .COMPLEX Qty: 30 3RF Dose Instruction: TAKE 1 TABLET BY MOUTH DAILY FOR ACID REFLUX Rx Instructions: TAKE 1 TABLET BY MOUTH DAILY FOR ACID REFLUX metoprolol succinate 50 mg tablet extended release 24 hr 100 mg PO BID 30 Days Qty: 120 2RF alprazolam [Xanax] 0.25 mg tablet 0.25 mg PO TID Qty: 90 2RF fluticasone propionate [Flonase Allergy Relief] 50 mcg/actuation spray,suspension 1 spray intranasal DAILY Qty: 16 3RF Rx Instructions: administer into each nostril pravastatin 80 mg tablet See Rx Instructions .ROUTE .COMPLEX Qty: 90 0RF Dose Instruction: TAKE 1 TABLET BY MOUTH FOR CHOLESTEROL Rx Instructions: TAKE 1 TABLET BY MOUTH FOR CHOLESTEROL cetirizine [Allergy Relief (cetirizine)] 10 mg tablet See Rx Instructions .ROUTE .COMPLEX Qty: 30 1RF Dose Instruction: TAKE 1 TABLET BY MOUTH DAILY Rx Instructions: TAKE 1 TABLET BY MOUTH DAILY citalopram 20 mg tablet See Rx Instructions .ROUTE .COMPLEX Qty: 30 1RF Dose Instruction: TAKE 1 TABLET BY MOUTH ONCE DAILY Rx Instructions: TAKE 1 TABLET BY MOUTH ONCE DAILY Referrals Follow up/Referrals: Provider,Referral, MD [Referring, Medical] - See instructions Activity Restrictions/Add. Instructions Additional Instructions/Restrictions: You were evaluated on an emergency basis. It is very important that you follow- up with your primary care provider and any specialist who we discussed within the next 2 days in order to better assess your health more comprehensively. For example, incidental findings on imaging or laboratory results that were performed today may be discovered, which do not require immediate medical care, but may impact your health in the future. If your symptoms worsen or persist, please return to the emergency department immediately for reassessment. Take all medications as prescribed. In queue for allowing me to participate in your health care, and I hope you feel better soon. Clinical Impressions Clinical Impression: Chest wall pain Print Language Print Language: Argentine Discharge ED Provider: [facility] HPI <Vera Juárez - Last Filed: 10/08/24 18:21> General Chief complaint: Chest Pain Stated complaint: chest pain Time Seen by Provider: 10/08/24 14:16 History of Present Illness HPI narrative: 59-year-old female with a history of hypertension presents to the emergency department with complaints of sudden onset of left-sided chest pain that started just prior to arrival. She denies shortness of breath, nausea, vomiting, diarrhea. She reports she also has a history of GERD. Related Data Previous Rx's ?Medication ?Instructions ?Recorded albuterol sulfate 90 mcg/actuation 2 puff inhalation Q 4-6H PRN 04/09/24 aerosol inhaler shortness of breath or wheez ing #8.5 grams hydrochlorothiazide 12.5 mg tablet 12.5 mg PO QAM hype rtension #30 07/08/24 tabs metoprolol succinate 50 mg 100 mg (2 x 50 mg) PO BID B P 30 07/08/24 tablet,extended release 24 hr days #120 tabs pantoprazole 40 mg tablet,delayed See Rx Instructions .Route 07/08/24 release .COMPLEX #30 tabs alprazolam 0.25 mg tablet (Xanax) 0.25 mg PO TID anxie ty #90 tabs 07/09/24 fluticasone propionate 50 1 spray intranasal DAILY . # 16 07/09/24 mcg/actuation nasal grams spray,suspension (Flonase Allergy Relief) cetirizine 10 mg tablet (Allergy See Rx Instructions . Route 09/07/24 Relief (cetirizine)) .COMPLEX #30 tabs pravastatin 80 mg tablet See Rx Instructions .Route 0 09/07/24 .COMPLEX #90 tabs citalopram 20 mg tablet See Rx Instructions .Route 0 09/30/24 .COMPLEX #30 tabs cyclobenzaprine 10 mg tablet 10 mg PO TID PRN muscle s pasm #15 10/08/24 tabs Allergies Allergy/AdvReac Type Severity Reaction Status Date / Time No Known Allergies Allergy Verified 08/27/24 13:53 [facility] <Vera Juárez - Last Filed: 10/08/24 18:21> [facility] Disclaimer: The information contained in this section may have been updated after the patient was seen, as this information can be updated by other users. Medical History Nerve damage RIGHT LEG Restless leg syndrome Scoliosis Skin cancer REMOVED FROM LEFT KNEE Urinary tract infection Sleep apnea Sinus headache Deviated nasal septum Allergic rhinitis Preoperative clearance Cystic fibrosis carrier Chronic GERD Hyperlipidemia Hypertension Hypothyroid Depression Anxiety Surgical History Status post tonsillectomy [place] teeth removed Previous back surgery History of bilateral tubal ligation Family History Father Coronary artery disease Hypertension Stroke Sister Lung cancer Other Alcoholism Heart attack Hyperlipidemia Kidney disease Social History Smoking Status: Current every day smoker tobacco type: cigarettes packs per day: 1 years smoked: 18 alcohol intake: never substance use type: denies use current occupational status: disabled Travel in the last 8 weeks?: None household members: none housing: apartment Have you lived/traveled outside [place] in past 30 days?: No Contact w/someone who lives/traveled outside US past 30 days?: No Exposure to someone with infectious disease in past 14 days?: No Do you have a fever (greater than 100.4 F or 38 C)?: No Have you tested positive for COVID-19?: No Exposed to someone with COVID-19 in past 14 days?: No Do you have a sore throat?: No Do you have a cough?: No Do you have any weakness?: No Do you have any diarrhea?: No Are you experiencing any unusual bleeding?: No Do you have any muscle aches/pain?: No Do you have any abdominal pain?: No Are you experiencing loss of taste or smell?: No Other Medical History Have you received the Flu Vaccine for this season: No Have you received the Pneumonia Vaccine: No <Vera Juárez - Last Filed: 10/08/24 18:21> ROS Obtained: Yes All systems reviewed & no additional complaints except as documented Cardiovascular Cardiovascular: Reports chest pain Gastrointestinal Gastrointestingal: Reports reflux Physical Exam <Vera Gayjimbo - Last Filed: 10/08/24 18:21> Narrative Physical exam: General: Awake, aware, in no acute distress HEENT: Normocephalic, no evidence of trauma CV: RRR, no murmurs, rubs, or gallops. 2+ pulses in all extremities. No edema noted Pulm: CTA bilaterally with no rhonchi, rales, wheezes ABD: Nontender, no swelling, guarding, or rebound tenderness Psych, appropriate mood and affect General General appearance: alert Respiratory Respiratory exam: Present normal lung sounds bilaterally Cardiovascular Cardiovascular exam: Present regular rate Neurological Exam Neurological exam: Present alert Medical Decision Making <Vera Gayjimbo - Last Filed: 10/08/24 18:21> Medical Records Screening: Per USPSTF and CDC recommendations, given the prevalence of disease in our region, it is our hospital?s policy to screen for HIV and viral Hepatitis for all patients aged 18 and over and those with ongoing risk factors. Sal Inquiry Pt receiving controlled substance: No Vital Signs: 10/08/24 14:11 10/08/24 14:13 10/08/24 15:31 Temperature 98.1 F 98.1 F Temperature Source Oral Oral Pulse Rate 55 L Pulse Rate [Radial] 58 L 58 L Respiratory Rate 18 20 16 Blood Pressure 102/80 L Blood Pressure [Right Arm] 153/85 H 153/85 H Blood Pressure Mean [Right Arm] 107 107 Blood Pressure Source [Right Arm] Automatic Cuff Automatic Cuff Blood Pressure Position [Right Arm] Sitting Sitting 02 Sat by Pulse Oximetry 98 98 98 Oxygen Delivery Method Room Air Room Air 10/08/24 16:01 10/08/24 16:26 10/08/24 16:30 Temperature Temperature Source Pulse Rate 55 L 52 L 50 L Pulse Rate [Radial] Respiratory Rate 12 Blood Pressure 100/56 L 137/71 138/79 Blood Pressure [Right Arm] Blood Pressure Mean [Right Arm] Blood Pressure Source [Right Arm] Blood Pressure Position [Right Arm] 02 Sat by Pulse Oximetry 98 97 97 Oxygen Delivery Method 10/08/24 17:01 10/08/24 17:30 10/08/24 18:00 Temperature Temperature Source Pulse Rate 52 L 55 L 51 L Pulse Rate [Radial] Respiratory Rate Blood Pressure 120/72 126/100 H 147/65 H Blood Pressure [Right Arm] Blood Pressure Mean [Right Arm] Blood Pressure Source [Right Arm] Blood Pressure Position [Right Arm] 02 Sat by Pulse Oximetry 97 97 97 Oxygen Delivery Method 10/08/24 18:05 10/08/24 18:23 Temperature 98.3 F Temperature Source Pulse Rate 49 L 52 L Pulse Rate [Radial] Respiratory Rate 16 Blood Pressure 126/72 126/72 Blood Pressure [Right Arm] Blood Pressure Mean [Right Arm] Blood Pressure Source [Right Arm] Blood Pressure Position [Right Arm] 02 Sat by Pulse Oximetry 98 Oxygen Delivery Method Lab Data Lab Results 10/08/24 14:05: WBC 5.9, RBC 4.62, Hgb 13.8, Hct 39.5, MCV 85.5, MCH 29.9, MCHC 34.9, RDW 13.3, Plt Count 230, MPV 10.9 H, Neut % (Auto) 37.4, Lymph % (Auto) 49.9, [place] % (Auto) 6.2, Eos % (Auto) 5.4, Baso % (Auto) 0.8, Neut # (Auto) 2.2, Lymph # (Auto) 3.0, [place] # (Auto) 0.4, Eos # (Auto) 0.3, Baso # (Auto) 0.1, Sodium 141, Potassium 3.7, Chloride 108 H, Carbon Dioxide 25, Anion Gap 11.7, BUN 13, Creatinine 0.90, Estimated Creat Clear 84, Estimated GFR 65, Est GFR ( Amer) 78, Glucose 107 H, Calcium 9.7, Magnesium 1.7, Total Bilirubin 0.6, AST 35, ALT 21, Alkaline Phosphatase 50, Troponin I < 0.01, Total Protein 7.3, Albumin 4.6, Globulin 2.7, Albumin/Globulin Ratio 1.7, Lipase 182 10/08/24 17:20: Troponin I < 0.01 10/08/24 14:05 10/08/24 14:05 Orders (Tests/Meds): ED MEDICATIONS Discontinued Medications Generic Name Dose Route Start Last Admin Trade Name Freq PRN Reason Stop Dose Admin Aspirin 162 mg 10/08/24 14:16 10/08/24 14:40 Aspirin 81mg Chewable Tablet PO 10/08/24 14:17 162 mg ONCE ONE Administration Cyclobenzaprine HCl 10 mg 10/08/24 16:10 10/08/24 16:24 Cyclobenzaprine 10mg Tablet PO 10/08/24 16:11 10 mg ONCE ONE Administration ORDERS Category Date Time Status XR chest portable Stat Exams 10/08/24 14:16 Completed CBC w/Auto Diff [Complete Blood Count Auto Diff] Stat Lab 10/08/24 14:05 Completed CMP [Comprehensive Metabolic Panel] Stat Lab 10/08/24 14:05 Completed Lipase Stat Lab 10/08/24 14:05 Completed Magnesium Stat Lab 10/08/24 14:05 Completed Troponin I Q3H Lab 10/08/24 14:05 Completed Troponin I Q3H Lab 10/08/24 17:20 Completed Medical Decision Narrative: Initial impression of presenting illness: 59-year-old female presents emergency department with complaints of sudden onset of left-sided chest pain. She denies nausea, vomiting, diarrhea, fevers, or shortness of breath. She reports she has a history of GERD as well as hypertension and has been taking all of her medications as prescribed. Differential diagnosis includes but is not limited to: ACS, pneumonia, pancreatitis, gallbladder disease, pleurisy, GERD Patient arrives hemodynamically stable, afebrile, without respiratory distress with vital signs interpreted by myself. Initial physical exam unremarkable Initial diagnostic plan: ACS workup including 162 mg aspirin Results from initial plan were reviewed and interpreted by myself, pertinent positives include: Laboratory studies including chest x-ray and serial troponins were nonactionable. Patient's EKG shows sinus bradycardia with a rate of 56. No ST changes no signs of ischemia at this time. Interventions in the ED: Patient was given aspirin per ACS protocol as well as Flexeril for pain control. Patient was made aware of the results and the findings, upon reevaluation patient has remained stable throughout stay, symptoms have improved. Upon reevaluation patient is resting comfortably in bed with no signs of acute distress. Consultation/discussion with other physicians: I have reviewed patient's presenting complaint as well as workup findings with ED attending Dr. Trevino Disposition: Reviewed findings today's workup with patient informed no acute abnormalities were noted. She reports that she is feeling better after receiving the muscle relaxer so we will treat for musculoskeletal strain. Formed her will give her prescription for Flexeril that she may use for the next several days to help with the pain. Formed her this medication may make her drowsy so use caution until she knows how sleepy will make her. Should also avoid alcohol or operating heavy machinery while taking the medication. Instructed her to follow-up with her primary care provider for any ongoing pain or return to the emergency department for any new or worsening symptoms. Patient made aware of findings and had a detailed discussion with symptomatic care and return precautions, patient voiced understanding. <Jose Daniel Sanford, DO - Last Filed: 10/09/24 07:49> Vital Signs: 10/08/24 14:11 10/08/24 14:13 10/08/24 15:31 Temperature 98.1 F 98.1 F Temperature Source Oral Oral Pulse Rate 55 L Pulse Rate [Radial] 58 L 58 L Respiratory Rate 18 20 16 Blood Pressure 102/80 L Blood Pressure [Right Arm] 153/85 H 153/85 H Blood Pressure Mean [Right Arm] 107 107 Blood Pressure Source [Right Arm] Automatic Cuff Automatic Cuff Blood Pressure Position [Right Arm] Sitting Sitting 02 Sat by Pulse Oximetry 98 98 98 Oxygen Delivery Method Room Air Room Air 10/08/24 16:01 10/08/24 16:26 10/08/24 16:30 Temperature Temperature Source Pulse Rate 55 L 52 L 50 L Pulse Rate [Radial] Respiratory Rate 12 Blood Pressure 100/56 L 137/71 138/79 Blood Pressure [Right Arm] Blood Pressure Mean [Right Arm] Blood Pressure Source [Right Arm] Blood Pressure Position [Right Arm] 02 Sat by Pulse Oximetry 98 97 97 Oxygen Delivery Method 10/08/24 17:01 10/08/24 17:30 10/08/24 18:00 Temperature Temperature Source Pulse Rate 52 L 55 L 51 L Pulse Rate [Radial] Respiratory Rate Blood Pressure 120/72 126/100 H 147/65 H Blood Pressure [Right Arm] Blood Pressure Mean [Right Arm] Blood Pressure Source [Right Arm] Blood Pressure Position [Right Arm] 02 Sat by Pulse Oximetry 97 97 97 Oxygen Delivery Method 10/08/24 18:05 10/08/24 18:23 Temperature 98.3 F Temperature Source Pulse Rate 49 L 52 L Pulse Rate [Radial] Respiratory Rate 16 Blood Pressure 126/72 126/72 Blood Pressure [Right Arm] Blood Pressure Mean [Right Arm] Blood Pressure Source [Right Arm] Blood Pressure Position [Right Arm] 02 Sat by Pulse Oximetry 98 Oxygen Delivery Method Lab Data Lab Results 10/08/24 14:05: WBC 5.9, RBC 4.62, Hgb 13.8, Hct 39.5, MCV 85.5, MCH 29.9, MCHC 34.9, RDW 13.3, Plt Count 230, MPV 10.9 H, Neut % (Auto) 37.4, Lymph % (Auto) 49.9, [place] % (Auto) 6.2, Eos % (Auto) 5.4, Baso % (Auto) 0.8, Neut # (Auto) 2.2, Lymph # (Auto) 3.0, [place] # (Auto) 0.4, Eos # (Auto) 0.3, Baso # (Auto) 0.1, Sodium 141, Potassium 3.7, Chloride 108 H, Carbon Dioxide 25, Anion Gap 11.7, BUN 13, Creatinine 0.90, Estimated Creat Clear 84, Estimated GFR 65, Est GFR ( Amer) 78, Glucose 107 H, Calcium 9.7, Magnesium 1.7, Total Bilirubin 0.6, AST 35, ALT 21, Alkaline Phosphatase 50, Troponin I < 0.01, Total Protein 7.3, Albumin 4.6, Globulin 2.7, Albumin/Globulin Ratio 1.7, Lipase 182 10/08/24 17:20: Troponin I < 0.01 Orders (Tests/Meds): ED MEDICATIONS Discontinued Medications Generic Name Dose Route Start Last Admin Trade Name Manisha PRN Reason Stop Dose Admin Aspirin 162 mg 10/08/24 14:16 10/08/24 14:40 Aspirin 81mg Chewable Tablet PO 10/08/24 14:17 162 mg ONCE ONE Administration Cyclobenzaprine HCl 10 mg 10/08/24 16:10 10/08/24 16:24 Cyclobenzaprine 10mg Tablet PO 10/08/24 16:11 10 mg ONCE ONE Administration ORDERS Category Date Time Status XR chest portable Stat Exams 10/08/24 14:16 Completed CBC w/Auto Diff [Complete Blood Count Auto Diff] Stat Lab 10/08/24 14:05 Completed CMP [Comprehensive Metabolic Panel] Stat Lab 10/08/24 14:05 Completed Lipase Stat Lab 10/08/24 14:05 Completed Magnesium Stat Lab 10/08/24 14:05 Completed Troponin I Q3H Lab 10/08/24 14:05 Completed Troponin I Q3H Lab 10/08/24 17:20 Completed ECG Data Tracing #1: I reviewed this ECG and interpreted as documented below: EKG personally interpreted by me demonstrates sinus bradycardia with a rate of 56 bpm, normal axis, no IN prolongation, narrow QRS, no QTc prolongation. No ST elevation or depression. No overt signs of ischemia or arrhythmia Medical Decision Narrative: Initial impression of presenting illness: 59-year-old female presents emergency department with complaints of sudden onset of left-sided chest pain. She denies nausea, vomiting, diarrhea, fevers, or shortness of breath. She reports she has a history of GERD as well as hypertension and has been taking all of her medications as prescribed. Differential diagnosis includes but is not limited to: ACS, pneumonia, pancreatitis, gallbladder disease, pleurisy, GERD Patient arrives hemodynamically stable, afebrile, without respiratory distress with vital signs interpreted by myself. Initial physical exam unremarkable Initial diagnostic plan: ACS workup including 162 mg aspirin Results from initial plan were reviewed and interpreted by myself, pertinent positives include: Laboratory studies including chest x-ray and serial troponins were nonactionable. Patient's EKG shows sinus bradycardia with a rate of 56. No ST changes no signs of ischemia at this time. Interventions in the ED: Patient was given aspirin per ACS protocol as well as Flexeril for pain control. Patient was made aware of the results and the findings, upon reevaluation patient has remained stable throughout stay, symptoms have improved. Upon reevaluation patient is resting comfortably in bed with no signs of acute distress. Consultation/discussion with other physicians: I have reviewed patient's presenting complaint as well as workup findings with ED attending Dr. Sanford Disposition: Reviewed findings today's workup with patient informed no acute abnormalities were noted. She reports that she is feeling better after receiving the muscle relaxer so we will treat for musculoskeletal strain. Formed her will give her prescription for Flexeril that she may use for the next several days to help with the pain. Informed her this medication may make her drowsy so use caution until she knows how sleepy will make her. Should also avoid alcohol or operating heavy machinery while taking the medication. Instructed her to follow-up with her primary care provider for any ongoing pain or return to the emergency department for any new or worsening symptoms. Patient made aware of findings and had a detailed discussion with symptomatic care and return precautions, patient voiced understanding. Critical Care <Vera Juárez - Last Filed: 10/08/24 18:21> Critical Care Time Critical Care Time: No
--- NOTE | 2024-10-08 14:16 | XR_ITS ---
FINAL REPORT CLINICAL HISTORY: Chemical inhalation, chest pain, slight sob COMPARISON: 12/08/2018 FINDINGS: A portable view of the chest was obtained. Cardiac and mediastinal silhouettes are within normal limits. The lungs are clear. There is no pleural effusion or pneumothorax. IMPRESSION: No acute process on this portable exam. Reviewed, Interpreted and Dictated by Chana Reza MD Transcribed by Genesis Caldera Authenticated and . [facility]
[2024-10-08 14:26] LABS: Albumin Level 4.6 g/dl (3.5-5.0); Chloride 108 mmol/L (98-107); Hematocrit 39.5 % (37.0-47.0); Hemoglobin 13.8 g/dL (12.2-16.2); Immature Granulocytes % 0.3 %; Mean Corpuscular HGB Conc 34.9 g/dL (31.8-35.4); Mean Corpuscular Hemoglobin 29.9 pg (27.0-31.2); Mean Corpuscular Volume 85.5 fl (81-99); Nucleated Red Blood Cells % 0 %; Platelet Count 230 K/mm3 (142-424); Red Blood Count 4.62 M/mm3 (4.20-5.40); Red Cell Distribution Width-SD 41.5 fL; Sodium 141 mmol/L (136-145); White Blood Count 5.9 K/mm3 (4.8-10.8)
[2024-10-08 14:27] LABS: Potassium 3.7 mmoL/L (3.5-5.1)
[2024-10-08 14:29] LABS: Alanine Aminotransferase 21 U/L (12-78); Albumin/Globulin Ratio 1.7 (1.1-1.8); Alkaline Phosphatase 50 U/L (38-126); Anion Gap 11.7 mEq/L (5-15); Aspartate Amino Transferase 35 U/L (14-36); Bilirubin,Total 0.6 mg/dl (0.2-1.3); Blood Urea Nitrogen 13 mg/dl (7-17); Calcium 9.7 mg/dl (8.4-10.2); Carbon Dioxide 25 mmol/L (22.0-30.0); Creatinine Clearance Estimated 84 mL/min (50-200); Creatinine,Serum 0.90 mg/dl (0.52-1.04); Estimated Glomerular Filt Rate 65 ml/min (>60); GFR (African American) 78 ML/MIN (>60); Globulin 2.7 g/dL (1.3-3.2); Glucose 107 mg/dl (74-100); Lipase 182 U/L (23-300); Total Protein,Serum 7.3 g/dl (6.3-8.2)
[2024-10-08 14:30] LABS: Magnesium 1.7 mg/dl (1.6-2.3)
[2024-10-08] MEDS: ASPIRIN 81MG CHEWABLE TABLET 162 MG PO (14:40)
[2024-10-08 14:42] LABS: Troponin I < 0.01 ng/ml (0.00-0.034)
[2024-10-08] MEDS: CYCLOBENZAPRINE 10MG TABLET 10 MG PO (16:24)
[2024-10-08 17:55] LABS: Troponin I < 0.01 ng/ml (0.00-0.034)
== END 2024-10-08 18:28 | disposition home or self-care (01) ==
PROVIDERS: Nurse Practitioner Family; Emergency Provider Student in an Organized Health Care Education/Training Program; PCP Family Medicine
DX: R07.89 Other chest pain (principal); I10 Essential (primary) hypertension; E78.5 Hyperlipidemia, unspecified; G47.33 Obstructive sleep apnea (adult) (pediatric); F17.210 Nicotine dependence, cigarettes, uncomplicated
CPT/HCPCS: 71045; 80053; 83690; 83735; 84484; 85025; 93005; 99285

== ENCOUNTER 2024-12-16 09:34 | Outpatient (CLI) | payer MEDICAID, SELFPAY ==
[2024-12-16 17:49] LABS: Hematocrit 42.0 % (37.0-47.0); Hemoglobin 14.0 g/dL (12.2-16.2); Immature Granulocytes % 0.2 %; Mean Corpuscular HGB Conc 33.3 g/dL (31.8-35.4); Mean Corpuscular Hemoglobin 29.7 pg (27.0-31.2); Mean Corpuscular Volume 89.2 fl (81-99); Nucleated Red Blood Cells % 0 %; Platelet Count 238 K/mm3 (142-424); Red Blood Count 4.71 M/mm3 (4.20-5.40); Red Cell Distribution Width-SD 45.1 fL; White Blood Count 5.9 K/mm3 (4.8-10.8)
[2024-12-16 18:52] LABS: Albumin Level 4.9 g/dl (3.5-5.0); Chloride 103 mmol/L (98-107); Potassium 3.8 mmoL/L (3.5-5.1); Sodium 142 mmol/L (136-145)
[2024-12-16 18:55] LABS: Alanine Aminotransferase 19 U/L (12-78); Albumin/Globulin Ratio 2.5 (1.1-1.8); Alkaline Phosphatase 66 U/L (38-126); Anion Gap 14.8 mEq/L (5-15); Aspartate Amino Transferase 29 U/L (14-36); Bilirubin,Total 0.5 mg/dl (0.2-1.3); Blood Urea Nitrogen 17 mg/dl (7-17); Calcium 9.1 mg/dl (8.4-10.2); Carbon Dioxide 28 mmol/L (22.0-30.0); Cholesterol 175 mg/dl (140-200); Creatinine,Serum 0.90 mg/dl (0.52-1.04); Estimated Glomerular Filt Rate 65 ml/min (>60); GFR (African American) 78 ML/MIN (>60); Globulin 2.0 g/dL (1.3-3.2); Glucose 67 mg/dl (74-100); Total Protein,Serum 6.9 g/dl (6.3-8.2); Triglycerides 134 mg/dl (30-150)
[2024-12-16 18:56] LABS: HDL Cholesterol 43 mg/dl (40-60)
[2024-12-16 19:26] LABS: Thyroid Stimulating Hormone 3.39 uIU/mL (0.465-4.68)
[2024-12-16 19:40] LABS: Hepatitis C Ab Qual. W/ RFX NEGATIVE (Negative)
[2024-12-18 05:09] LABS: Hepatitis B Surface Antigen Negative (Negative)
--- OUTSIDE RECORDS SUMMARY | 2024-12-18 09:40 | XMS_ITS | Data Portability ---
Author Organization [facility] & [place], [facility] [place] Address [address] [place] [phone] Assessment No assessment recorded. Plan of Treatment Reminders Order Date Submit Date Provider Last Modified By Organization Details Last Modified Time Details Appointments None recorded. Lab None recorded. Referral orthopedic sports medicine referral - history of carpal tunnel, documented with EMG nerve conduction last year, not improved conservativ e management. 2021 022 [email or web address] Dipak Vargas MD, [address] [facility], [address], [place], [address], 07:43:49 Procedures None recorded. Surgeries None recorded. Imaging None recorded. Medication Orders Medrol (Mehdi) 4 mg tablets in a dose pack 2021 022 CINDY [facility], [address] [place], [address], 09:27:52 Patient TargetsNo targets recorded. Patient InstructionsNo instructions recorded. Reason for Referral Orthopedic Sports Medicine R eferral for Bilateral carpal tunnel syndrome history of carpal tunnel, documented with EMG nerve conduction last year, not improved conservative management. Referring Physician: Joana Barbosa, Neurology, Encounter Date: 11/08/2021 Procedures Surgical History Date Name Laterality Status Provider Name and Address Organization Details Recorded Time Back Surgery completed Brigida HODGE - FRANCK [facility] & [place] 11/02/2021 16:19:36 Tubal Ligation completed Brigida JUÁREZ [facility] 11/02/2021 16:19:47 Imaging Results None recorded. Procedure Notes None recorded. Medical Equipment None Reported. Allergies No known drug allergies Medications Name Sig Start Date Stop Date Status Note LastModified by Organization Details LastModified Time trazodone 50 mg tablet Take 1 tablet every day by oral route. active Not Available Not Available No t Available cetirizine 10 mg tablet TAKE 1 TABLET BY MOUTH EVERY DAY active Not Available Not Available No t Available tizanidine 4 mg tablet active Not Available Not Available No t Available metoprolol succinate ER 50 mg tablet,exten ded release 24 hr TAKE 1 TABLET BY MOUTH EVERY DAY active Not Available Not Available No t Available doxepin 25 mg capsule TAKE 1 CAPSULE BY MOUTH AT BEDTIME active Not Available Not Available No t Available metronidazol e 500 mg tablet 11/02 completed Not Available Not Available Not Available prazosin 5 mg capsule active Not Available Not Available N ot Available pravastatin 80 mg tablet active Not Available Not Available Not Available pantoprazole 40 mg tablet,delay ed release TAKE 1 TABLET BY MOUTH EVERY DAY active Not Available Not Available No t Available buspirone 10 mg tablet TAKE 1 TABLET BY MOUTH THREE TIMES DAILY active Not Available Not Available No t Available nicotine 21 mg/24 hr daily transdermal patch 11/02 completed Not Available Not Available Not Available hydrochlorot hiazide 12.5 mg capsule active Not Available Not Available N ot Available docusate sodium 100 mg capsule active Not Available Not Available N ot Available diclofenac sodium 75 mg tablet,delay ed release TAKE 1 TABLET BY MOUTH DAILY 11/02 completed Not Available Not Available Not Available methylpredni solone 4 mg tablets in a dose pack Take as directed , Medrol Dosepak active Not Available Not Available No t Available fluticasone propionate 50 mcg/actuatio n nasal spray,suspen [place] active Not Available Not Available Not Available prazosin 2 mg capsule TAKE 1 CAPSULE BY MOUTH AT BEDTIME active Not Available Not Available No t Available hydroxyzine pamoate 25 mg capsule 11/02 completed Not Available Not Available Not Available duloxetine 30 mg capsule,anabelle yed release TAKE 1 ORAL CAPSULE ONCE A DAY WITH A 60 MG CAPSULE. active Not Available Not Available No t Available duloxetine 60 mg capsule,anabelle yed release Take 1 capsule every day by oral route. active Not Available Not Available No t Available Linzess 290 mcg capsule TAKE 1 CAPSULE BY MOUTH AT LEAST 30 MINUTES BEFORE THE FIRST MEAL OF THE DAY ON AN EMPTY STOMACH active Not Available Not Available No t Available Flowflex COVID-19 Antigen Home Test kit 11/02 completed Not Available Not Available Not Available Vitals Date Recorded Body height Body mass index (BMI) Body weight Body temperature Oxygen saturation Oxygen saturation in Arterial blood by Pulse oximetry Heart rate Systolic And Diastolic Provider Name and Address Organization Details Last Updated DateTime 2 165.1 cm 28.5 kg/m2 35064.0 1 g 96.5 [degF] 98 % 98 % 86 /min 136/78 mm[Hg] Brigida Machado [facility] & [place] 09:04:52 Social History Question Answer Notes LastModified by Organizat ion Details LastModified Time Tobacco Smoking Status Current Every Day Smoker Brigida Machado [facility], [facility] & [place] 11/02/2021 16:19:21 How Much Tobacco Do You Smoke? 1 PPD Information not available 11/02/2021 Sex: Unknown Functional Status None recorded. Mental Status None recorded. Family History Relationship Description Onset Age of this Age Resolved Age Notes LastModified by Organization Details LastModified Time Father Essential hypertension [facility] ed Not available 11/08/2021 08:55:53 Father Anxiety dece ed Not available 11/08/2021 08:55:53 Mother Essential hypertension Not available 08:55:53 Mother Anxiety Not available 11/08/2021 08:55:53 Mother Arthritis Not availabl e 11/08/2021 08:55:53 Mother Heart disease Not available 2021 16:17:05 Brother Heart disease dece ed Not available 11/02/2021 16:17:41 Brother Coronary artery stenosis dece ed Not available 11/08/2021 08:55:53 Brother Myocardial infarction dece ed Not available 11/02/2021 16:18:02 Son Cystic fibrosis Not available 09/22/ 2022 16:18:24 Son Aortic valve stenosis Not available 2021 08:55:53 Medical History Condition Response Anxiety Disorder Y PTSD Y Mental Problems Y Hyperlipidemia Y Depression Y Hypothyroidism Y Gynecological HistoryNo gynecological history recorded. Obstetrics History GPAL:G 0 P 0 0 0 0 Past Encounters Encounter ID Performer Location Encounter Start Date Encounter Closed Date Diagnosis/Indication Diagnosis SNOMED-CT Code Diagnosis ICD10 Code Diagnosis IMO Codes Diagnosis Note [id number] Joana Barbosa MD [facility] [address] [facility],[place] [address] 11/08/2021 08:55:07 11/08/2021 09:43:42 Bilateral carpal tunnel syndrome 0866175516 2626407 G56.03 Health Concerns Section Related Observation LastModified by Organization Detai ls LastModified Time None Recorded Concern Status LastModified by Organization Details LastModified Time None Recorded Advance Directives Directive None Recorded Payers Insurance Date Sequence Insurance Name Policy Number Policy Webster Covered Member ID Webster Member ID Guarantor Name 08/31/2023 1 [facility] (MEDICAID REPLACEMENT - HMO) [id number] Christiekaroline Coughlin [id number] Tamar A Ced 08/31/2023 1 [facility] Kimmy Coughlin [id number] Tamar A Ced Notes Date Note Type Note Provider Name and Address Organization Details Recorded Time 11/08/2021 text/html 56-year-old female seen by me in the past for numbness and tingling, pain in the hands, we have gone ahead with nerve conduction studies which revealed mild carpal tunnel on the right and mild carpal tunnel on the left. We have gone ahead with conservative management to include wrist splints and a trial of Medrol Dosepak. Initially patient did well but over the next several months patient has noticed increased difficulty with numbness tingling and pain she complains of significant pain in her hands especially when she tries to do any manual labor in particular in her right hand. She also complains of low back pain with radiation to both legs. Patient has known history of multilevel degenerative disc disease as well as postsurgical changes at L5-S1. Joana Barbosa MD [address] [place] [address], [phone], [facility] & [place] 11/08/2021 09:28:08 OBGyn Episode No OBEpisode recorded.
--- OUTSIDE RECORDS SUMMARY | 2024-12-18 09:40 | XMS_ITS | Encounter Summary ---
Author Organization Healthcare Address [address] [place] [address] Care Team Providers Care Hydraulic Strainer Operator Name Role Phone Pcp, No Primary Care Provider UnavailCatia Odonnella Tatyana DMD Unavailable [phone] Aftab Riggins Unavailable Unavailable Carmen Major Janie Unavailable [phone] Day, Kristen P DMD Unavailable [phone] Servando Lu MD Primary Care Provider Evelyn Ella Gallego Unavailable Unavailable Aleja Smart DMD Unavailable [phone] Reason for Referral * Consultation (Routine) - Closed Specialty Diagnoses / Procedures Referred By Veronica chcako Referred To Contact Neurosurgery Diagnoses Low back pain, unspecified back pain laterality, unspecified chronicity, unspecified whether sciatica present Lexi Zamora APRN [address] [place] [address] Phone: tel: fax: Referral ID Status Reason Start Date Expiration Date V isits Requested Visits Authorized [id number] Closed Specialty Services Required 02/07/2022 08/09/2023 1 1 Encounter Details Date Type Department Care Team (Late st Contact Info) Description 02/07/2022 Community [facility] Community Practice [address] [place] [address] Lexi Zamora APRN [address] [place] [address] Symptoms referable to back (Primary [...] present documented in this encounter Care Teams Hydraulic Strainer Operator Relationship Specialty Start Date End Date Pcp, No [address] [place] [address] PCP - General Family Medicine 12/27/21 10/21/22 Servando Lu MD [address] [place] [address] PCP - General Family Medicine 10/22/22 Trinity Padilla DMD [address] [address] Dentist Dental Web Weaver 12/28/21 Aftab Riggins [employer] Dental Student Dental Web Weaver 12/28/21 06/05/22 Carmen Major [address] [place] [address] Dentist 03/09/22 Kristen Song DMD [address] [place] [id number] Dental Student Dental Web Weaver 06/06/22 Ella Vo Dental Student Dental Web Weaver 05/28/23 Aleja Smart, BRIE [address] [facility], [address] [place] [address] Watchstander 08/28/24 documented as of this encounter
--- OUTSIDE RECORDS SUMMARY | 2024-12-18 09:40 | XMS_ITS | Clinical Summary ---
Author Organization [facility] Address [address] [place] [address] Care Team Providers Care Fertilizer Processing Supervisor Name Role Phone Dong Majort Janie Unavailable [phone] Servando Lu MD Primary Care Provider Ella Martinez Unavailable Unavailable Aleja Smart DMD Unavailable [phone] Allergies No known active allergies Medications [...] Date Smoking Tobacco: Every Day Cigarettes 1 14.8 Started: 03/15/2010 Smokeless Tobacco: Former Tobacco Cessation:Ready [...] 04/23/2023 10/22/2022, 02/15/2022 Dental Prophylaxis 04/23/2023 10/22/2022 [id number] Vaccine (1 - season) 2024 UKY-Influenza Vaccine (#1) 2024 Dental X-Ray: Full [...] Patient has decision-making capacity? Yes Care Teams Fertilizer Processing Supervisor Relationship Specialty Start Date End Date Servando Lu MD [address] [place] [address] PCP - General Family Medicine 10/22/22 Carmen Major [address] [place] [address] Dentist 03/09/22 Ella Vo Dental Student Dental Seat Cover Installer 05/28/23 Aleja Smart DMD [address] [place] [address], [address] [place] [id number] Petroleum Engineering Professor 08/28/24
[2024-12-18 13:02] LABS: Vitamin B12 253 pg/mL (239-931)
== END 2024-12-16 23:59 ==
LOC: LAB.DROPOF 12-18 09:35
PROVIDERS: PCP Family Medicine; Visit Provider Family Medicine
DX: E78.5 Hyperlipidemia, unspecified (principal); I10 Essential (primary) hypertension; G45.9 Transient cerebral ischemic attack, unspecified; Z11.4 Encounter for screening for human immunodeficiency virus [HIV]; Z11.59 Encounter for screening for other viral diseases
CPT/HCPCS: 80053; 80061; 82607; 84443; 85025; 86803; 87340; 87389

== ENCOUNTER 2024-12-20 11:05 | Emergency (ER) | payer MEDICAID, SELFPAY ==
[2024-12-20] VITALS (11 sets, daily range): BP systolic 140–199; BP diastolic 72–93; PULSE 51–63; RESP 12–18; TEMP 36.6–36.7; O2SAT 95–99; BMI 29.1
--- OUTSIDE RECORDS SUMMARY | 2024-12-20 11:18 | XMS_ITS | Encounter Summary ---
Author Organization Healthcare Address [address] [place] [address] Care Team Providers Care Work Checker Name Role Phone Pcp, No Primary Care Provider UnavailCatia Odonnella Tatyana DMD Unavailable Aftab Riggins Unavailable Unavailable Carmen Major Janie Unavailable [phone] Day, Kristen P DMD Unavailable [phone] Servando Lu MD Primary Care Provider Evelyn Ella Gallego Unavailable Unavailable Aleja Smart DMD Unavailable [phone] Reason for Referral * Consultation (Routine) - Closed Specialty Diagnoses / Procedures Referred By Veronica chacko Referred To Contact Neurosurgery Diagnoses Low back pain, unspecified back pain laterality, unspecified chronicity, unspecified whether sciatica present Lexi Zamora APRN [address] [place] [address] Phone: tel: fax: Referral ID Status Reason Start Date Expiration Date V isits Requested Visits Authorized [id number] Closed Specialty Services Required 02/07/2022 08/09/2023 1 1 Encounter Details Date Type Department Care Team (Late st Contact Info) Description 02/07/2022 Community [facility] Community Practice [address] [place] [address] Lexi Zamora APRN [address] [place] [address] Symptoms referable to back (Primary [...] present documented in this encounter Care Teams Work Checker Relationship Specialty Start Date End Date Pcp, No [address] [place] [address] PCP - General Family Medicine 12/27/21 10/21/22 Servando Lu MD [address] [place] [address] PCP - General Family Medicine 10/22/22 Trinity Padilla DMD [address] [address] Dentist Dental Truant Officer 12/28/21 Aftab Riggins [employer] Dental Student Dental Truant Officer 12/28/21 06/05/22 Carmen Major [address] [place] [address] Dentist 03/09/22 Kristen Song DMD [address] [place] [phone] Dental Student Dental Truant Officer 06/06/22 Ella Vo Dental Student Dental Truant Officer 05/28/23 Aleja Smart, BRIE 800 [facility], [address] [place] [address] Machine Precision Engraver 08/28/24 documented as of this encounter
--- OUTSIDE RECORDS SUMMARY | 2024-12-20 11:18 | XMS_ITS | Data Portability ---
Author Organization [facility] & [place], [facility] [place] Address [address] [place] [address] Assessment No assessment recorded. Plan of Treatment Reminders Order Date Submit Date Provider Last Modified By Organization Details Last Modified Time Details Appointments None recorded. Lab None recorded. Referral orthopedic sports medicine referral - history of carpal tunnel, documented with EMG nerve conduction last year, not improved conservativ e management. 2021 022 [email or web address] Dipak Vargas MD, [address] [facility], [address], [place], [address], 07:43:49 Procedures None recorded. Surgeries None recorded. Imaging None recorded. Medication Orders Medrol (Mehdi) 4 mg tablets in a dose pack 2021 022 CINDY [facility], [address] [place], [address], 09:27:52 Patient TargetsNo targets recorded. Patient InstructionsNo [...] Back Surgery completed Brigida HODGE - FRANCK [facility] & [place] 11/02/2021 16:19:36 Tubal Ligation completed Brigida JUÁREZ [facility] 11/02/2021 16:19:47 Imaging Results None recorded. [...] Updated DateTime 2 165.1 cm 28.5 kg/m2 98740.0 1 g 96.5 [degF] 98 % 98 % 86 /min 136/78 mm[Hg] Brigida Machado [facility] & [place] 09:04:52 Social History Question Answer Notes LastModified by Organizat ion Details LastModified Time Tobacco Smoking Status Current Every Day Smoker Brigida Machado [facility], [facility] & [place] 11/02/2021 16:19:21 How Much Tobacco Do You Smoke? 1 PPD Information not available 11/02/2021 Sex: Unknown Functional Status None recorded. Mental Status None recorded. Family History Relationship Description Onset Age of this Age Resolved Age Notes LastModified by Organization Details LastModified Time Father Essential hypertension [facility] ed Not available 11/08/2021 08:55:53 Father Anxiety [...] PTSD Y Mental Problems Y Hyperlipidemia Y Hypothyroidism Y Depression Y Gynecological HistoryNo gynecological history recorded. Obstetrics History GPAL:G 0 P 0 0 0 0 Past Encounters Encounter ID Performer Location Encounter Start Date Encounter Closed Date Diagnosis/Indication Diagnosis SNOMED-CT Code Diagnosis ICD10 Code Diagnosis IMO Codes Diagnosis Note [id number] Joana Barbosa MD [place] [facility] [address] [facility],[place] [address] 11/08/2021 08:55:07 11/08/2021 09:43:42 Bilateral carpal tunnel syndrome [id number] [id number] G56.03 Health Concerns Section Related Observation LastModified by Organization Detai ls LastModified Time None Recorded Concern Status LastModified by Organization Details LastModified Time None Recorded Advance Directives Directive None Recorded Payers Insurance Date Sequence Insurance Name Policy Number Policy Webster Covered Member ID Webster Member ID Guarantor Name 08/31/2023 1 [facility] (MEDICAID REPLACEMENT - HMO) [id number] Christiekaroline Coughlin [id number] Tamar A Ced 08/31/2023 1 [facility] Kimmy Coughlin [id number] Tamar A Ced Notes Date Note Type [...] postsurgical changes at L5-S1. Joana Barbosa MD [address] [place] [address], [phone], [facility] & [place] 11/08/2021 09:28:08 OBGyn Episode No OBEpisode recorded.
--- OUTSIDE RECORDS SUMMARY | 2024-12-20 11:19 | XMS_ITS | Clinical Summary ---
Author Organization [facility] Address [address] [place] [address] Care Team Providers Care Collection Development Librarian Name Role Phone Dong Majort Janie Unavailable Servando Lu MD Primary Care Provider Ella Martinez Unavailable Unavailable Aleja Smart DMD Unavailable [phone] Allergies No known active allergies Medications [...] 04/23/2023 10/22/2022, 02/15/2022 Dental Prophylaxis 04/23/2023 10/22/2022 [id number] Vaccine (1 - season) 2024 UKY-Influenza Vaccine [...] Patient has decision-making capacity? Yes Care Teams Collection Development Librarian Relationship Specialty Start Date End Date Servando Lu MD [address] [place] [address] PCP - General Family Medicine 10/22/22 Carmen Major [address] [place] [address] Dentist 03/09/22 Ella Vo Dental Student Dental Laundry Operator Finishing 05/28/23 Aleja Smart DMD [address] [place] [address], [address] [place] [phone] Maintenance Worker Swimming Pool 08/28/24
--- NOTE | 2024-12-20 11:51 | ED_ITS ---
Discharge Plan Disposition Chief Complaint: PAIN Prescriptions Prescriptions: No Action Linzess 145 mcg capsule 145 mcg PO DAILY fluticasone propionate [Flonase Allergy Relief] 50 mcg/actuation spray,suspension 1 spray intranasal DAILY Qty: 16 3RF Rx Instructions: administer into each nostril albuterol sulfate [Ventolin HFA] 90 mcg/actuation HFA aerosol inhaler See Rx Instructions .ROUTE .COMPLEX Qty: 18 2RF Dose Instruction: 2 PUFF INHALED EVERY 4-6 HOURS NEEDED FOR SHORTNESS OF BREATH OR WHEEZING Rx Instructions: 2 PUFF INHALED EVERY 4-6 HOURS NEEDED FOR SHORTNESS OF BREATH OR WHEEZING hydrochlorothiazide 12.5 mg tablet See Rx Instructions .ROUTE .COMPLEX Qty: 30 1RF Dose Instruction: TAKE 1 TABLET BY MOUTH EVERY MORNING FOR HYPERTENSION Rx Instructions: TAKE 1 TABLET BY MOUTH EVERY MORNING FOR HYPERTENSION alprazolam [Xanax] 0.25 mg tablet 0.25 mg PO TID Qty: 90 2RF ondansetron 4 mg tablet,disintegrating 4 - 8 mg PO BID PRN (Reason: nausea and vomiting) Qty: 20 2RF pantoprazole 40 mg tablet,delayed release (DR/EC) See Rx Instructions .ROUTE .COMPLEX Qty: 30 3RF Dose Instruction: TAKE 1 TABLET BY MOUTH DAILY FOR ACID REFLUX Rx Instructions: TAKE 1 TABLET BY MOUTH DAILY FOR ACID REFLUX metoprolol succinate 50 mg tablet extended release 24 hr 100 mg PO BID 30 Days Qty: 120 2RF cetirizine [Allergy Relief (cetirizine)] 10 mg tablet See Rx Instructions .ROUTE .COMPLEX Qty: 30 1RF Dose Instruction: TAKE 1 TABLET BY MOUTH DAILY Rx Instructions: TAKE 1 TABLET BY MOUTH DAILY citalopram 20 mg tablet See Rx Instructions .ROUTE .COMPLEX Qty: 30 1RF Dose Instruction: TAKE 1 TABLET BY MOUTH ONCE DAILY Rx Instructions: TAKE 1 TABLET BY MOUTH ONCE DAILY pravastatin 80 mg tablet See Rx Instructions .ROUTE .COMPLEX Qty: 90 0RF Dose Instruction: TAKE 1 TABLET BY MOUTH FOR CHOLESTEROL Rx Instructions: TAKE 1 TABLET BY MOUTH FOR CHOLESTEROL cyclobenzaprine 10 mg tablet 10 mg PO TID PRN (Reason: muscle spasm) Qty: 15 0RF Referrals Follow up/Referrals: Servando Lu MD [Primary Care Provider, Internal Medicine] - See instructions Print Language Print Language: Andorran Discharge ED Provider: Anu [facility] Adult HPI General Chief complaint: PAIN Stated complaint: high b/p Time Seen by Provider: 12/20/24 11:51 Mode of Arrival: Ambulatory Source of Information: Patient Description of Symptoms (Recalled from ER Triage Doc. by RN): PT presents with c/o high blood pressure for around 4-5 weeks now. Pt states about a month ago she had a TIA. Pt states she was seeing PCP and he took her off of her hydrochlorothiazide. History of Present Illness HPI narrative: Patient is a 59-year-old with past medical history significant for tobacco use disorder hypertension sleep apnea presents to the emergency department for intermittent right upper extremity weakness. Patient had a TIA on 12 16 and was seen at outside hospital due to slurred speech. Patient has been taking aspirin since. Patient also taking pravastatin 80 mg. Notes change in her blood pressure medication recently because diastolic blood pressure was becoming too low. Has been compliant with taking 100 mg of metoprolol twice per day. This morning patient's blood pressure was high with systolic of 209 before taking blood pressure medication. While patient's blood pressure was high she had an episode of right upper extremity weakness that lasted about 10 minutes without any speech numbness or vision changes. Symptoms resolved without any interventions. Patient is very anxious that she might be having a stroke. Related Data Home Medications ?Medication ?Instructions ?Recorded ?Confirmed linaclotide 145 mcg capsule 145 mcg PO DAILY 12/16/24 12/16/24 (Linzess) Previous Rx's ?Medication ?Instructions ?Recorded fluticasone propionate 50 1 spray intranasal DAILY . # 16 07/09/24 mcg/actuation nasal grams spray,suspension (Flonase Allergy Relief) cyclobenzaprine 10 mg tablet 10 mg PO TID PRN muscle s pasm #15 10/08/24 tabs albuterol sulfate 90 mcg/actuation See Rx Instructions .Route 10/13/24 aerosol inhaler (Ventolin HFA) .COMPLEX #18 grams alprazolam 0.25 mg tablet (Xanax) 0.25 mg PO TID anxie ty #90 tabs 10/13/24 hydrochlorothiazide 12.5 mg tablet See Rx Instructions .Route 10/13/24 .COMPLEX #30 tabs ondansetron 4 mg disintegrating 4 - 8 mg (1 - 2 x 4 mg ) PO BID PRN 10/28/24 tablet nausea and vomiting #20 tabs cetirizine 10 mg tablet (Allergy See Rx Instructions . Route 11/16/24 Relief (cetirizine)) .COMPLEX #30 tabs metoprolol succinate 50 mg 100 mg (2 x 50 mg) PO BID B P 30 11/16/24 tablet,extended release 24 hr days #120 tabs pantoprazole 40 mg tablet,delayed See Rx Instructions .Route 11/16/24 release .COMPLEX #30 tabs citalopram 20 mg tablet See Rx Instructions .Route 1 .COMPLEX #30 tabs pravastatin 80 mg tablet See Rx Instructions .Route 1 02/17/24 .COMPLEX #90 tabs Allergies Allergy/AdvReac Type Severity Reaction Status Date / Time No Known Allergies Allergy Verified 12/16/24 08:56 [facility] Disclaimer: The information contained in this section may have been updated after the patient was seen, as this information can be updated by other users. Medical History (Updated 12/18/24 @ 09:57 by Linh Landrum) Skin lesion Nerve damage Restless leg syndrome Scoliosis Skin cancer Urinary tract infection Sleep apnea Sinus headache Deviated nasal septum Allergic rhinitis Preoperative clearance Cystic fibrosis carrier Chronic GERD Hyperlipidemia Hypertension Hypothyroid Depression Anxiety Surgical History Status post tonsillectomy Rueter teeth removed Previous back surgery History of bilateral tubal ligation Family History Father Coronary artery disease Hypertension Stroke Sister Lung cancer Other Alcoholism Heart attack Hyperlipidemia Kidney disease Social History Smoking Status: Current every day smoker tobacco type: cigarettes packs per day: 1 years smoked: 18 alcohol intake: never substance use type: denies use current occupational status: disabled Travel in the last 8 weeks?: None household members: none housing: apartment Have you lived/traveled outside US in past 30 days?: No Contact w/someone who lives/traveled outside US past 30 days?: No Exposure to someone with infectious disease in past 14 days?: No Do you have a fever (greater than 100.4 F or 38 C)?: No Have you tested positive for COVID-19?: No Exposed to someone with COVID-19 in past 14 days?: No Do you have a sore throat?: No Do you have a cough?: No Do you have any weakness?: No Do you have any diarrhea?: No Are you experiencing any unusual bleeding?: No Do you have any muscle aches/pain?: No Do you have any abdominal pain?: No Are you experiencing loss of taste or smell?: No Other Medical History Have you received the Flu Vaccine for this season: No Have you received the Pneumonia Vaccine: No ROS Obtained: Yes All systems reviewed & no additional complaints except as documented Physical Exam General General appearance: alert and in no apparent distress Eye Eye exam: Present normal appearance and PERRL ENT ENT exam: Present normal exam and normal oropharynx Respiratory Respiratory exam: Present normal lung sounds bilaterally; Absent respiratory distress Cardiovascular Cardiovascular exam: Present regular rate and normal rhythm Abdominal Exam Abdominal exam: Present soft; Absent distention Neurological Exam Neurological exam: Present alert, oriented X3, CN II-XII intact, normal gait and other (NIH stroke scale of 0); Absent motor sensory deficit Medical Decision Making Medical Records Screening: Per USPSTF and CDC recommendations, given the prevalence of disease in our region, it is our hospital?s policy to screen for HIV and viral Hepatitis for all patients aged 18 and over and those with ongoing risk factors. Sal Inquiry Pt receiving controlled substance: No Vital Signs: 12/20/24 11:08 12/20/24 11:17 12/20/24 11:22 Temperature 97.8 F Temperature Source Oral Pulse Rate 53 L 54 L Pulse Rate [Right] 56 L Respiratory Rate 18 15 Blood Pressure 165/79 H 165/91 H Blood Pressure [Right Arm] 199/86 H Blood Pressure Mean [Right Arm] 123 Blood Pressure Source [Right Arm] Automatic Cuff Blood Pressure Position [Right Arm] Sitting 02 Sat by Pulse Oximetry 98 98 98 Oxygen Delivery Method Room Air Room Air Room Air 12/20/24 11:26 12/20/24 11:30 12/20/24 11:46 Temperature Temperature Source Pulse Rate 61 59 L 57 L Pulse Rate [Right] Respiratory Rate 13 15 15 Blood Pressure 160/93 H 148/72 H 174/91 H Blood Pressure [Right Arm] Blood Pressure Mean [Right Arm] Blood Pressure Source [Right Arm] Blood Pressure Position [Right Arm] 02 Sat by Pulse Oximetry 98 97 99 Oxygen Delivery Method Room Air Room Air Room Air 12/20/24 12:00 12/20/24 12:15 12/20/24 12:45 Temperature Temperature Source Pulse Rate 52 L 51 L 63 Pulse Rate [Right] Respiratory Rate 17 14 17 Blood Pressure 140/79 172/85 H 173/83 H Blood Pressure [Right Arm] Blood Pressure Mean [Right Arm] Blood Pressure Source [Right Arm] Blood Pressure Position [Right Arm] 02 Sat by Pulse Oximetry 95 95 97 Oxygen Delivery Method Room Air Room Air Room Air 12/20/24 13:01 Temperature Temperature Source Pulse Rate 55 L Pulse Rate [Right] Respiratory Rate 12 Blood Pressure 152/86 H Blood Pressure [Right Arm] Blood Pressure Mean [Right Arm] Blood Pressure Source [Right Arm] Blood Pressure Position [Right Arm] 02 Sat by Pulse Oximetry 96 Oxygen Delivery Method Room Air Lab Data Lab Results 12/20/24 11:23: WBC 6.1, RBC 4.39, Hgb 13.0, Hct 38.7, MCV 88.2, MCH 29.6, MCHC 33.6, RDW 13.7, Plt Count 220, MPV 10.6 H, Neut % (Auto) 38.9, Lymph % (Auto) 48.1, [place] % (Auto) 6.1, Eos % (Auto) 5.6, Baso % (Auto) 1.0, Neut # (Auto) 2.4, Lymph # (Auto) 2.9, [place] # (Auto) 0.4, Eos # (Auto) 0.3, Baso # (Auto) 0.1, Sodium 142, Potassium 3.7, Chloride 106, Carbon Dioxide 29, Anion Gap 10.7, BUN 10, Creatinine 0.90, Estimated Creat Clear 86, Estimated GFR 65, Est GFR ( Amer) 78, Glucose 88, Calcium 9.1, Total Bilirubin 0.7, AST 32, ALT 21, Alkaline Phosphatase 54, Troponin I < 0.01, Total Protein 7.0, Albumin 4.9, Globulin 2.1, Albumin/Globulin Ratio 2.3 H 12/20/24 11:23 12/20/24 11:23 Orders (Tests/Meds): ED MEDICATIONS Generic Name Dose Route Start Last Admin Trade Name Freq PRN Reason Stop Dose Admin Sodium Chloride 10 ml 12/20/24 12:32 12/20/24 12:33 Sodium Chloride 0.9% 10ml Syr (Rad Only) IV 12/09/25 12:31 10 ml NEEDED PRN Administration Maintain IV Site Discontinued Medications Generic Name Dose Route Start Last Admin Trade Name Manisha PRN Reason Stop Dose Admin Iopamidol 80 ml 12/20/24 12:32 12/20/24 12:33 Iopamidol-370 (76%);100ml Bottle IV 12/20/24 12:33 80 ml ONCE ONE Administration Sodium Chloride 50 ml 12/20/24 12:32 12/20/24 12:33 0.9 % Sodium Chloride 50 Ml Vial IV 12/20/24 12:33 50 ml ONCE ONE Administration ORDERS Category Date Time Status CT angio head Stat Cat Scan 12/20/24 11:[address] angio neck Stat Cat Scan 12/20/24 11:[address] head/brain wo con Stat Cat Scan 12/20/24 11:51 Completed CBC w/Auto Diff [Complete Blood Count Auto Diff] Stat Lab 12/20/24 11:23 Completed Comprehensive Metabolic Panel Stat Lab 12/20/24 11:23 Completed Trop I [Troponin I] Stat Lab 12/20/24 11:23 Completed Troponin I Q3H Lab 12/20/24 15:00 Ordered Troponin I Q3H Lab 12/20/24 18:00 Ordered Medical Decision Narrative: In summary, this 59-year-old female presents to the emergency department today with right upper extremity weakness. On initial evaluation patient is hemodynamically stable saturating appropriately on room air afebrile no acute distress. Differential diagnosis includes but is not limited to TIA, intracranial hemorrhage, hypertensive emergency, ischemic stroke. Based on these concerns, I ordered CBC CMP troponin CT head CTA head and neck. Labs personally reviewed demonstrate no leukocytosis normal creatinine normal troponin CT imaging personally interpreted demonstrate no intracranial hemorrhage or large vessel occlusion On reassessment blood pressure is 170s over 80s. Patient is asymptomatic at this time without headache. I recommended close follow-up with her primary care provider for better control of hypertension. At this time as patient is asymptomatic we will not try to decrease her blood pressure anymore for risk of ischemia. Symptoms are most consistent with a TIA especially with labile but blood pressures. Recommended continuing her aspirin and statin and close follow-up with her primary care provider. ABCD2 score Critical Care Critical Care Time Critical Care Time: No
--- NOTE | 2024-12-20 11:51 | CT_ITS ---
PROCEDURE INFORMATION: Exam: CT Head Without Contrast Exam date and time: 12/20/2024 12:32 PM Age: 59 years old Clinical indication: Stroke-like symptoms; Other: TIA, R arm weakness TECHNIQUE: Imaging protocol: Computed tomography of the head without contrast. Radiation optimization: All CT scans at this facility use at least one of these dose optimization techniques: automated exposure control; mA and/or kV adjustment per patient size (includes targeted exams where dose is matched to clinical indication); or iterative reconstruction. Other technique: STROKE PROTOCOL was implemented. COMPARISON: CT HEAD/BRAIN WO CON 12/08/2018 10:51 AM FINDINGS: Brain: Remote lacunar infarction in the right doll radiata. No acute intracranial hemorrhage. Cerebral ventricles: No ventriculomegaly. Paranasal sinuses: Visualized sinuses are unremarkable. No fluid levels. Mastoid air cells: Visualized mastoid air cells are well aerated. Bones: Unremarkable. No acute fracture. Soft tissues: Unremarkable. IMPRESSION: No acute intracranial abnormality. ASSESSMENT: ASPECTS ([place] Stroke Program Early CT Score) is 10.
--- NOTE | 2024-12-20 11:51 | CT_ITS ---
PROCEDURE INFORMATION: Exam: CTA Neck With Contrast Exam date and time: 12/20/2024 12:32 PM Age: 59 years old Clinical indication: Stroke-like symptoms; Other: TIA, R arm weakness TECHNIQUE: Imaging protocol: Computed tomographic angiography of the neck with contrast. Exam focused on the cervical segments of the vasculature. 3D rendering (Not supervised by radiologist): MIP and/or 3D reconstructed images were created by the technologist. Radiation optimization: All CT scans at this facility use at least one of these dose optimization techniques: automated exposure control; mA and/or kV adjustment per patient size (includes targeted exams where dose is matched to clinical indication); or iterative reconstruction. Contrast material: ISO 370; Contrast volume: 80 ml; Contrast route: INTRAVENOUS (IV); COMPARISON: CT ANGIO NECK 12/20/2024 12:32 PM FINDINGS: Right common carotid artery: No stenosis. No dissection or occlusion. Right internal carotid artery: No stenosis of the extracranial segment. No dissection or occlusion. Right external carotid artery: No occlusion or stenosis of the origin. Left common carotid artery: No stenosis. No dissection or occlusion. Left internal carotid artery: No stenosis of the extracranial segment. No dissection or occlusion. Left external carotid artery: No occlusion or stenosis of the origin. Right vertebral artery: No stenosis. No dissection or occlusion. Left vertebral artery: No stenosis. No dissection or occlusion. Soft tissues: Normal. No significant soft tissue swelling. Bones/joints: No acute fracture. IMPRESSION: No stenosis or occlusion. REFERENCES: NASCET CRITERIA. The degree of stenosis in the cervical segment of the internal carotid artery is based on NASCET criteria. Normal is no stenosis. Mild is less than 50% stenosis. Moderate is 50-69% stenosis. Severe is 70% to 99% stenosis. Total occlusion is no detectable patent lumen.
--- NOTE | 2024-12-20 11:51 | CT_ITS ---
PROCEDURE INFORMATION: Exam: CTA Head With Contrast, Arteriography Exam date and time: 12/20/2024 12:32 PM Age: 59 years old Clinical indication: Stroke-like symptoms; Other: TIA, R arm weakness TECHNIQUE: Imaging protocol: Computed tomographic angiography of the head with contrast. Exam focused on the arteries. 3D rendering (Not supervised by radiologist): MIP and/or 3D reconstructed images were created by the technologist. Radiation optimization: All CT scans at this facility use at least one of these dose optimization techniques: automated exposure control; mA and/or kV adjustment per patient size (includes targeted exams where dose is matched to clinical indication); or iterative reconstruction. Contrast material: ISO 370; Contrast volume: 80 ml; Contrast route: INTRAVENOUS (IV); COMPARISON: CT ANGIO HEAD 12/20/2024 12:32 PM FINDINGS: ANTERIOR CIRCULATION: Right internal carotid artery: Intracranial segment is patent with no significant stenosis. No aneurysm. Right middle cerebral artery: No occlusion or significant stenosis. No aneurysm. Right anterior cerebral artery: No occlusion or significant stenosis. No aneurysm. Left internal carotid artery: Intracranial segment is patent with no significant stenosis. No aneurysm. Left middle cerebral artery: No occlusion or significant stenosis. No aneurysm. Left anterior cerebral artery: No occlusion or significant stenosis. No aneurysm. POSTERIOR CIRCULATION: Right vertebral artery: No occlusion or significant stenosis. No aneurysm. Left vertebral artery: No occlusion or significant stenosis. No aneurysm. Basilar artery: No occlusion or significant stenosis. No aneurysm. Right posterior cerebral artery: No occlusion or significant stenosis. No aneurysm. Left posterior cerebral artery: No occlusion or significant stenosis. No aneurysm. Brain: No definite mass, mass effect, or midline shift. Cerebral ventricles: No ventriculomegaly. Bones/joints: Unremarkable. No acute fracture. Soft tissues: Unremarkable. IMPRESSION: No large vessel stenosis or occlusion.
[2024-12-20 11:53] LABS: Hematocrit 38.7 % (37.0-47.0); Hemoglobin 13.0 g/dL (12.2-16.2); Immature Granulocytes % 0.3 %; Mean Corpuscular HGB Conc 33.6 g/dL (31.8-35.4); Mean Corpuscular Hemoglobin 29.6 pg (27.0-31.2); Mean Corpuscular Volume 88.2 fl (81-99); Nucleated Red Blood Cells % 0 %; Platelet Count 220 K/mm3 (142-424); Red Blood Count 4.39 M/mm3 (4.20-5.40); Red Cell Distribution Width-SD 44.1 fL; White Blood Count 6.1 K/mm3 (4.8-10.8)
[2024-12-20 11:56] LABS: Chloride 106 mmol/L (98-107)
[2024-12-20 11:57] LABS: Albumin Level 4.9 g/dl (3.5-5.0); Potassium 3.7 mmoL/L (3.5-5.1); Sodium 142 mmol/L (136-145)
[2024-12-20 11:59] LABS: Alanine Aminotransferase 21 U/L (12-78); Anion Gap 10.7 mEq/L (5-15); Aspartate Amino Transferase 32 U/L (14-36); Blood Urea Nitrogen 10 mg/dl (7-17); Carbon Dioxide 29 mmol/L (22.0-30.0); Creatinine Clearance Estimated 86 mL/min (50-200); Creatinine,Serum 0.90 mg/dl (0.52-1.04); Estimated Glomerular Filt Rate 65 ml/min (>60); GFR (African American) 78 ML/MIN (>60)
[2024-12-20 12:00] LABS: Albumin/Globulin Ratio 2.3 (1.1-1.8); Alkaline Phosphatase 54 U/L (38-126); Bilirubin,Total 0.7 mg/dl (0.2-1.3); Calcium 9.1 mg/dl (8.4-10.2); Globulin 2.1 g/dL (1.3-3.2); Glucose 88 mg/dl (74-100); Total Protein,Serum 7.0 g/dl (6.3-8.2)
[2024-12-20 12:15] LABS: Troponin I < 0.01 ng/ml (0.00-0.034)
[2024-12-20] MEDS: SODIUM CHLORIDE 0.9% 10ML SYR (RAD ONLY) 10 ML IV (12:33)
[2024-12-20] MEDS: IOPAMIDOL-370 (76%);100ML BOTTLE 80 ML IV (12:33)
[2024-12-20] MEDS: 0.9 % SODIUM CHLORIDE 50 ML VIAL IV (12:33)
== END 2024-12-20 13:54 | disposition home or self-care (01) ==
PROVIDERS: Emergency Provider Student in an Organized Health Care Education/Training Program; PCP Family Medicine
DX: G45.9 Transient cerebral ischemic attack, unspecified (principal); I10 Essential (primary) hypertension; F17.210 Nicotine dependence, cigarettes, uncomplicated
CPT/HCPCS: 70450; 70496; 70498; 80053; 84484; 85025; 99284; 99285; Q9967

== ENCOUNTER 2024-12-27 12:40 | Emergency (ER) | payer MEDICAID, SELFPAY ==
[2024-12-27 12:42] VITALS: BP 179/87; PULSE 57; RESP 18; TEMP 36.5; O2SAT 97; BMI 29.1
[2024-12-27 12:47] VITALS: BP 180/87; PULSE 60; RESP 18; O2SAT 97
--- OUTSIDE RECORDS SUMMARY | 2024-12-27 12:56 | XMS_ITS | Encounter Summary ---
Author Organization Healthcare Address [address] [place] [address] Care Team Providers Care Rn Procedure Name Role Phone Pcp, No Primary Care Provider UnavailCatia Odonnella Tatyana DMD Unavailable [phone] Aftab Riggins Unavailable Unavailable Carmen Major Janie Unavailable [phone], Kristen P DMD Unavailable [phone] Servando Lu MD Primary Care Provider Evelyn Ella Gallego Unavailable Unavailable Aleja Smart DMD Unavailable [phone] Reason for Referral * Consultation (Routine) - Closed Specialty Diagnoses / Procedures Referred By Veronica chacko Referred To Contact Neurosurgery Diagnoses Low back pain, unspecified back pain laterality, unspecified chronicity, unspecified whether sciatica present Lexi Zamora APRN [address] [place] [address] Phone: tel: fax: Referral ID Status Reason Start Date Expiration Date V isits Requested Visits Authorized [id number] Closed Specialty Services Required 02/07/2022 08/09/2023 1 1 Encounter Details Date Type Department Care Team (Late st Contact Info) Description 02/07/2022 Community [facility] [address] [place] [address] Lexi Zamora APRN [address] [place] [address] Symptoms referable to back (Primary [...] present documented in this encounter Care Teams Rn Procedure Relationship Specialty Start Date End Date Pcp, No [address] [place] [address] PCP - General Family Medicine 12/27/21 10/21/22 Servando Lu MD [address] [place] [address] PCP - General Family Medicine 10/22/22 Trinity Padilla DMD [address] [phone] Dentist Dental Injection Maintenance Technician 12/28/21 [employer] Dental Student Dental Injection Maintenance Technician 12/28/21 06/05/22 Carmen Major [address] [place] [address] Dentist 03/09/22 Kristen Song DMD [address] [place] [id number] Dental Student Dental Injection Maintenance Technician 06/06/22 Ella Vo Dental Student Dental Injection Maintenance Technician 05/28/23 Aleja Smart, BRIE [address] [facility], [address] [place] [address] Spray Painting Machine Operator 08/28/24 documented as of this encounter
--- OUTSIDE RECORDS SUMMARY | 2024-12-27 12:56 | XMS_ITS | Clinical Summary ---
Author Organization [facility] Address [address] [place] [address] Care Team Providers Care Delivery Assistant Name Role Phone Dong Majort Janie Unavailable [phone] Servando Lu MD Primary Care Provider Ella Martinez Unavailable Unavailable Aleja Smart DMD Unavailable [phone] Allergies No known active allergies Medications [...] 04/23/2023 10/22/2022, 02/15/2022 Dental Prophylaxis 04/23/2023 10/22/2022 [id number] Vaccine (1 - season) 2024 UKY-Influenza Vaccine [...] Patient has decision-making capacity? Yes Care Teams Delivery Assistant Relationship Specialty Start Date End Date Servando Lu MD [address] [place] [id number] PCP - General Family Medicine 10/22/22 Carmen Major [address] [place] [id number] Dentist 03/09/22 Ella Vo Dental Student Dental Juvenile Officer 05/28/23 Aleja Smart DMD [address] [place] [address], [address] [place] [id number] Academic Guidance Specialist 08/28/24
[2024-12-27 13:00] VITALS: BP 167/94; PULSE 57; O2SAT 94
--- NOTE | 2024-12-27 13:04 | CT_ITS ---
PROCEDURE INFORMATION: Exam: CT Abdomen And Pelvis With Contrast Exam date and time: 12/27/2024 1:43 PM Age: 59 years old Clinical indication: Abdominal pain TECHNIQUE: Imaging protocol: Computed tomography of the abdomen and pelvis with contrast. Radiation optimization: All CT scans at this facility use at least one of these dose optimization techniques: automated exposure control; mA and/or kV adjustment per patient size (includes targeted exams where dose is matched to clinical indication); or iterative reconstruction. Contrast material: ISOVUE; Contrast volume: 75 ml; Contrast route: IV; COMPARISON: CT ABDOMEN PELVIS W CON 12/27/2024 1:43 PM FINDINGS: Lungs: Lung bases are clear as visualized. Liver: Normal. No mass. Gallbladder and biliary ducts: Normal. No calcified stones. No ductal dilation. Pancreas: Normal. No ductal dilation. Spleen: Calcified granulomas in the spleen. Adrenal glands: Normal. No mass. Kidneys and ureters: Normal. No hydronephrosis. Stomach and bowel: No bowel obstruction or acute inflammation. Appendix: Appendix is normal. Intraperitoneal space: Unremarkable. No free air. No significant fluid collection. Vasculature: Unremarkable. No abdominal aortic aneurysm. Lymph nodes: Unremarkable. No enlarged lymph nodes. Urinary bladder: Unremarkable as visualized. Reproductive: Small volume free fluid in the bilateral adnexae ([id number]-left) and pelvic cul-de-sac. Attenuates at simple density. Calcified intramural fibroid again demonstrated posterior body. Uterus otherwise unremarkable. Bones/joints: Stable severe degenerative change at L5-S1. No acute osseous abnormality. Soft tissues: Unremarkable. IMPRESSION: 1. Small volume free fluid in the bilateral adnexae ([id number]-left) and pelvic cul-de-sac. Attenuates at simple density. Suspicious for recent ovarian cyst rupture. The adnexae are otherwise unremarkable. 2. No bowel obstruction or acute inflammation.
--- NOTE | 2024-12-27 13:05 | XR_ITS ---
PROCEDURE INFORMATION: Exam: XR Chest Exam date and time: 12/27/2024 1:47 PM Age: 59 years old Clinical indication: Shortness of breath; Additional info: Short of breath TECHNIQUE: Imaging protocol: Radiologic exam of the chest. Views: 1 view. COMPARISON: CR XR CHEST PORTABLE 10/08/2024 2:46 PM FINDINGS: Lungs: Unremarkable. No consolidation. Pleural spaces: Unremarkable. No pleural effusion. No pneumothorax. Heart/Mediastinum: Unremarkable. No cardiomegaly. Bones/joints: Unremarkable. IMPRESSION: No acute findings.
[2024-12-27 13:12] LABS: Hematocrit 38.3 % (37.0-47.0); Hemoglobin 13.2 g/dL (12.2-16.2); Immature Granulocytes % 0.4 %; Mean Corpuscular HGB Conc 34.5 g/dL (31.8-35.4); Mean Corpuscular Hemoglobin 30.0 pg (27.0-31.2); Mean Corpuscular Volume 87.0 fl (81-99); Nucleated Red Blood Cells % 0 %; Platelet Count 222 K/mm3 (142-424); Red Blood Count 4.40 M/mm3 (4.20-5.40); Red Cell Distribution Width-SD 43.3 fL; White Blood Count 5.6 K/mm3 (4.8-10.8)
--- NOTE | 2024-12-27 13:13 | ED_ITS ---
<Statement entered by Dallas Atkinson MD - 12/27/24 15:21> I was consulted by the VIN, and we discussed the complexity of the problems being addressed. I approve the treatment and management plan for this patient's care in the emergency department, thus performing a substantive portion of the medical decision making. Dallas Atkinson MD Discharge Plan Disposition Chief Complaint: Abdominal Pain Prescriptions Prescriptions: No Action Linzess 145 mcg capsule 145 mcg PO DAILY lisinopril 10 mg tablet 10 mg PO DAILY Qty: 30 2RF fluticasone propionate [Flonase Allergy Relief] 50 mcg/actuation spray,suspension 1 spray intranasal DAILY Qty: 16 3RF Rx Instructions: administer into each nostril albuterol sulfate [Ventolin HFA] 90 mcg/actuation HFA aerosol inhaler See Rx Instructions .ROUTE .COMPLEX Qty: 18 2RF Dose Instruction: 2 PUFF INHALED EVERY 4-6 HOURS NEEDED FOR SHORTNESS OF BREATH OR WHEEZING Rx Instructions: 2 PUFF INHALED EVERY 4-6 HOURS NEEDED FOR SHORTNESS OF BREATH OR WHEEZING hydrochlorothiazide 12.5 mg tablet See Rx Instructions .ROUTE .COMPLEX Qty: 30 1RF Dose Instruction: TAKE 1 TABLET BY MOUTH EVERY MORNING FOR HYPERTENSION Rx Instructions: TAKE 1 TABLET BY MOUTH EVERY MORNING FOR HYPERTENSION alprazolam [Xanax] 0.25 mg tablet 0.25 mg PO TID Qty: 90 2RF ondansetron 4 mg tablet,disintegrating 4 - 8 mg PO BID PRN (Reason: nausea and vomiting) Qty: 20 2RF pantoprazole 40 mg tablet,delayed release (DR/EC) See Rx Instructions .ROUTE .COMPLEX Qty: 30 3RF Dose Instruction: TAKE 1 TABLET BY MOUTH DAILY FOR ACID REFLUX Rx Instructions: TAKE 1 TABLET BY MOUTH DAILY FOR ACID REFLUX metoprolol succinate 50 mg tablet extended release 24 hr 100 mg PO BID 30 Days Qty: 120 2RF cetirizine [Allergy Relief (cetirizine)] 10 mg tablet See Rx Instructions .ROUTE .COMPLEX Qty: 30 1RF Dose Instruction: TAKE 1 TABLET BY MOUTH DAILY Rx Instructions: TAKE 1 TABLET BY MOUTH DAILY citalopram 20 mg tablet See Rx Instructions .ROUTE .COMPLEX Qty: 30 1RF Dose Instruction: TAKE 1 TABLET BY MOUTH ONCE DAILY Rx Instructions: TAKE 1 TABLET BY MOUTH ONCE DAILY pravastatin 80 mg tablet See Rx Instructions .ROUTE .COMPLEX Qty: 90 0RF Dose Instruction: TAKE 1 TABLET BY MOUTH FOR CHOLESTEROL Rx Instructions: TAKE 1 TABLET BY MOUTH FOR CHOLESTEROL cyclobenzaprine 10 mg tablet 10 mg PO TID PRN (Reason: muscle spasm) Qty: 15 0RF Referrals Follow up/Referrals: Servando Lu MD [Primary Care Provider, Internal Medicine] - See instructions Instructions Patient Instructions: DI for Acute Abdominal Pain Print Language Print Language: Tajik Discharge ED Provider: Dallas Atkinson General Adult HPI <Kala Johnson (ED), VALUE ADVISOR - Last Filed: 12/27/24 15:08> General Chief complaint: Abdominal Pain Stated complaint: Burning in Upper Abd. and throat Time Seen by Provider: 12/27/24 12:45 Mode of Arrival: Ambulatory Source of Information: Patient Description of Symptoms (Recalled from ER Triage Doc. by RN): PT states for the last 3-4 days she has felt like the top of her abdomen is on fire. Pt does take medication for acid reflux and has stated nothing has changed with that she has not missed a dose. Pt also c/o a headache for the last week and high blood pressure. Pt was seen last week in the ED for similar blood pressure/headache issues. History of Present Illness HPI narrative: 59-year-old female presents to the ED today for complaint of abdominal pain at the top of her abdomen. She says it feels like fire. She does take Protonix and says it does help but feels like it is just worse. She also complains of headache and elevated blood pressure over the last week. She has been taking it and has been anywhere from systolic 138 to systolic 195. Patient was seen last week in the ER for similar BP and headache issues. She tells me that she had a mini stroke 3 to 4 weeks ago as well. She said recently she was constipated but that is better now after taking Linzess and milk of mag. Patient is very anxious. Related Data Home Medications ?Medication ?Instructions ?Recorded ?Confirmed linaclotide 145 mcg capsule 145 mcg PO DAILY 12/16/24 12/21/24 (Linzess) Previous Rx's ?Medication ?Instructions ?Recorded fluticasone propionate 50 1 spray intranasal DAILY . # 16 07/09/24 mcg/actuation nasal grams spray,suspension (Flonase Allergy Relief) cyclobenzaprine 10 mg tablet 10 mg PO TID PRN muscle s pasm #15 10/08/24 tabs albuterol sulfate 90 mcg/actuation See Rx Instructions .Route 10/13/24 aerosol inhaler (Ventolin HFA) .COMPLEX #18 grams alprazolam 0.25 mg tablet (Xanax) 0.25 mg PO TID anxie ty #90 tabs 10/13/24 hydrochlorothiazide 12.5 mg tablet See Rx Instructions .Route 10/13/24 .COMPLEX #30 tabs ondansetron 4 mg disintegrating 4 - 8 mg (1 - 2 x 4 mg ) PO BID PRN 10/28/24 tablet nausea and vomiting #20 tabs cetirizine 10 mg tablet (Allergy See Rx Instructions . Route 11/16/24 Relief (cetirizine)) .COMPLEX #30 tabs metoprolol succinate 50 mg 100 mg (2 x 50 mg) PO BID B P 30 11/16/24 tablet,extended release 24 hr days #120 tabs pantoprazole 40 mg tablet,delayed See Rx Instructions .Route 11/16/24 release .COMPLEX #30 tabs citalopram 20 mg tablet See Rx Instructions .Route 1 .COMPLEX #30 tabs pravastatin 80 mg tablet See Rx Instructions .Route 1 02/17/24 .COMPLEX #90 tabs lisinopril 10 mg tablet 10 mg PO DAILY hypertension #30 12/21/24 tabs Allergies Allergy/AdvReac Type Severity Reaction Status Date / Time No Known Allergies Allergy Verified 12/21/24 14:33 [facility] <Kala Johnson (ED), VALUE ADVISOR - Last Filed: 12/27/24 15:08> [facility] Disclaimer: The information contained in this section may have been updated after the patient was seen, as this information can be updated by other users. Medical History Skin lesion Nerve damage RIGHT LEG Restless leg syndrome Scoliosis Skin cancer REMOVED FROM LEFT KNEE Urinary tract infection Sleep apnea Sinus headache Deviated nasal septum Allergic rhinitis Preoperative clearance Cystic fibrosis carrier Chronic GERD Hyperlipidemia Hypertension Hypothyroid Depression Anxiety Surgical History Status post tonsillectomy Orma teeth removed Previous back surgery History of bilateral tubal ligation Family History Father Coronary artery disease Hypertension Stroke Sister Lung cancer Other Alcoholism Heart attack Hyperlipidemia Kidney disease Social History Smoking Status: Current every day smoker tobacco type: cigarettes packs per day: 1 years smoked: 18 alcohol intake: never substance use type: denies use current occupational status: disabled Travel in the last 8 weeks?: None household members: none housing: apartment Have you lived/traveled outside US in past 30 days?: No Contact w/someone who lives/traveled outside US past 30 days?: No Exposure to someone with infectious disease in past 14 days?: No Do you have a fever (greater than 100.4 F or 38 C)?: No Have you tested positive for COVID-19?: No Exposed to someone with COVID-19 in past 14 days?: No Do you have a sore throat?: No Do you have a cough?: No Do you have any weakness?: No Do you have any diarrhea?: No Are you experiencing any unusual bleeding?: No Do you have any muscle aches/pain?: No Do you have any abdominal pain?: No Are you experiencing loss of taste or smell?: No Other Medical History Have you received the Flu Vaccine for this season: No Have you received the Pneumonia Vaccine: No <Kala Johnson (ED), VALUE ADVISOR - Last Filed: 12/27/24 15:08> ROS Obtained: Yes Systems reviewed as appropriate & no additional complaints except as documented Constitutional Constitutional: Reports as per HPI Physical Exam <Kala Johnson (ED), VALUE ADVISOR - Last Filed: 12/27/24 15:08> General General appearance: alert and in no apparent distress Head Head exam: normocephalic Eye Eye exam: Present PERRL and EOMI ENT ENT exam: Present normal oropharynx and mucous membranes moist Neck Neck exam: Present full ROM and trachea midline Respiratory Respiratory exam: Present normal lung sounds bilaterally Cardiovascular Cardiovascular exam: Present regular rate, normal rhythm, normal heart sounds, +S1 and +S2 Abdominal Exam Abdominal exam: Present soft, tenderness and normal bowel sounds Abdominal tenderness: Present epigastrium Extremities Exam Extremities exam: Present normal inspection, full ROM and normal capillary refill Neurological Exam Neurological exam: Present alert and oriented X3 Skin Skin exam: Present warm and dry Medical Decision Making <Kalapanfilo Codymagen (ED), VALUE ADVISOR - Last Filed: 12/27/24 15:08> Medical Records Screening: Per USPSTF and CDC recommendations, given the prevalence of disease in our region, it is our hospital?s policy to screen for HIV and viral Hepatitis for all patients aged 18 and over and those with ongoing risk factors. Sal Inquiry Pt receiving controlled substance: No Sal was queried for this patient: No Vital Signs: 12/27/24 12:42 12/27/24 12:47 12/27/24 13:00 Temperature 97.7 F Temperature Source Temporal Artery Scan Pulse Rate 60 57 L Pulse Rate [Right] 57 L Respiratory Rate 18 18 Blood Pressure 180/87 H 167/94 H Blood Pressure [Right Arm] 179/87 H Blood Pressure Mean [Right Arm] 117 Blood Pressure Source Automatic Cuff Blood Pressure Source [Right Arm] Automatic Cuff Blood Pressure Position Sitting Blood Pressure Position [Right Arm] Sitting 02 Sat by Pulse Oximetry 97 97 94 L Oxygen Delivery Method Room Air Room Air 12/27/24 13:31 Temperature Temperature Source Pulse Rate 59 L Pulse Rate [Right] Respiratory Rate Blood Pressure 156/74 H Blood Pressure [Right Arm] Blood Pressure Mean [Right Arm] Blood Pressure Source Blood Pressure Source [Right Arm] Blood Pressure Position Blood Pressure Position [Right Arm] 02 Sat by Pulse Oximetry 96 Oxygen Delivery Method Room Air Lab Data Lab Results 12/27/24 12:58: WBC 5.6, RBC 4.40, Hgb 13.2, Hct 38.3, MCV 87.0, MCH 30.0, MCHC 34.5, RDW 13.5, Plt Count 222, MPV 10.6 H, Neut % (Auto) 44.7, Lymph % (Auto) 43.8, [place] % (Auto) 5.9, Eos % (Auto) 4.3, Baso % (Auto) 0.9, Neut # (Auto) 2.5, Lymph # (Auto) 2.4, [place] # (Auto) 0.3, Eos # (Auto) 0.2, Baso # (Auto) 0.1, D- Dimer 0.53 H, Sodium 136, Potassium 4.1, Chloride 106, Carbon Dioxide 25, Anion Gap 9.1, BUN 12, Creatinine 1.20 H, Estimated Creat Clear 65, Estimated GFR 46 L , Est GFR ( Amer) 56 L, Glucose 95, Calcium 9.2, Magnesium 1.9, Total Bilirubin 0.4, AST 34, ALT 32, Alkaline Phosphatase 58, Troponin I < 0.01, Total Protein 7.1, Albumin 4.3, Globulin 2.8, Albumin/Globulin Ratio 1.5, Lipase 240 12/27/24 12:58 12/27/24 12:58 Orders (Tests/Meds): ED MEDICATIONS Generic Name Dose Route Start Last Admin Trade Name Freq PRN Reason Stop Dose Admin Sodium Chloride 8 ml 12/27/24 13:04 12/27/24 13:37 Sodium Chloride 0.9% 10ml Vial IV 01/26/25 13:03 8 ml NEEDED PRN Administration dilute pepcid Discontinued Medications Generic Name Dose Route Start Last Admin Trade Name Freq PRN Reason Stop Dose Admin Aspirin 243 mg 12/27/24 13:42 12/27/24 14:27 Aspirin 81mg Chewable Tablet PO 12/27/24 13:43 243 mg ONCE ONE Administration Famotidine 20 mg 12/27/24 13:04 12/27/24 13:37 Famotidine 20mg/2ml Vial IV 12/27/24 13:05 20 mg ONCE ONE Administration Sodium Chloride 1,000 mls @ 999 mls/hr 12/27/24 13:32 12/27/24 13:39 Sod Chlor 0.9% 1000ml Bag IV 12/27/24 14:32 999 mls/hr .Q1H1M ONE Administration Iopamidol 75 ml 12/27/24 13:43 12/27/24 13:44 Iopamidol-370 (76%);100ml Bottle IV 12/27/24 13:44 75 ml ONCE ONE Administration Sodium Chloride 10 ml 12/27/24 13:43 12/27/24 13:44 Sodium Chloride 0.9% 10ml Syr (Rad Only) IV 12/27/24 13:44 10 ml ONCE ONE Administration ORDERS Category Date Time Status CT abdomen pelvis w con Stat Cat Scan 12/27/24 13:04 Completed Chest XR -- portable [XR chest portable] Stat Exams 12/27/24 13:05 Completed CBC [Complete Blood Count Auto Diff] Stat Lab 12/27/24 12:58 Completed Comprehensive Metabolic Panel Stat Lab 12/27/24 12:58 Completed D-Dimer Stat Lab 12/27/24 12:58 Completed Lipase Stat Lab 12/27/24 12:58 Completed Magnesium Stat Lab 12/27/24 12:58 Completed Trop I [Troponin I] Stat Lab 12/27/24 12:58 Completed Troponin I Q3H Lab 12/27/24 16:15 Ordered Troponin I Q3H Lab 12/27/24 19:15 Ordered HEART Score History (anamnesis): Slightly suspicious ECG: Normal Age: 45-65 years Risk factors: 1-2 risk factors Troponin: </= normal limit HEART Score: 2 Medical Decision Narrative: patient is a 59-year-old female presenting to the emergency department for evaluation of upper abdominal pain and burning, blood pressure issues and headache. Patient is hemodynamically stable, elevated blood pressure and nontoxic-appearing upon arrival, afebrile. Differential diagnosis includes hypertension, anxiety, ulcer, constipation, among others. Workup will be conducted with hematologic labs, specific imaging, provocative tests. Initial inventions include analgesics. Initial workup reviewed by me hematologic labs are remarkable for 5.6 white count normal H&H, dimer was 0.53 which per years criteria her likelihood of VTE is low or unlikely. She has been creatinine of 1.20 which I gave her a liter of saline. Patient did have a small amount of fluid in her adnexa's suspicious for her recent ovarian cyst rupture. Otherwise no bowel obstruction or other etiology for her upper abdominal pain. She does have a scope scheduled for the with Dr. Vizcaino. She and I discussed this. She will keep that appointment and then make an appointment with her doctor for this week for her blood pressure meds to be adjusted. Patient safe for discharge home. <Dallas Atkinson MD - Last Filed: 12/27/24 13:45> Vital Signs: 12/27/24 12:42 12/27/24 12:47 12/27/24 13:00 Temperature 97.7 F Temperature Source Temporal Artery Scan Pulse Rate 60 57 L Pulse Rate [Right] 57 L Respiratory Rate 18 18 Blood Pressure 180/87 H 167/94 H Blood Pressure [Right Arm] 179/87 H Blood Pressure Mean [Right Arm] 117 Blood Pressure Source Automatic Cuff Blood Pressure Source [Right Arm] Automatic Cuff Blood Pressure Position Sitting Blood Pressure Position [Right Arm] Sitting 02 Sat by Pulse Oximetry 97 97 94 L Oxygen Delivery Method Room Air Room Air 12/27/24 13:31 Temperature Temperature Source Pulse Rate 59 L Pulse Rate [Right] Respiratory Rate Blood Pressure 156/74 H Blood Pressure [Right Arm] Blood Pressure Mean [Right Arm] Blood Pressure Source Blood Pressure Source [Right Arm] Blood Pressure Position Blood Pressure Position [Right Arm] 02 Sat by Pulse Oximetry 96 Oxygen Delivery Method Room Air Lab Data Lab Results 12/27/24 12:58: WBC 5.6, RBC 4.40, Hgb 13.2, Hct 38.3, MCV 87.0, MCH 30.0, MCHC 34.5, RDW 13.5, Plt Count 222, MPV 10.6 H, Neut % (Auto) 44.7, Lymph % (Auto) 43.8, [place] % (Auto) 5.9, Eos % (Auto) 4.3, Baso % (Auto) 0.9, Neut # (Auto) 2.5, Lymph # (Auto) 2.4, [place] # (Auto) 0.3, Eos # (Auto) 0.2, Baso # (Auto) 0.1, D- Dimer 0.53 H, Sodium 136, Potassium 4.1, Chloride 106, Carbon Dioxide 25, Anion Gap 9.1, BUN 12, Creatinine 1.20 H, Estimated Creat Clear 65, Estimated GFR 46 L , Est GFR ( Amer) 56 L, Glucose 95, Calcium 9.2, Magnesium 1.9, Total Bilirubin 0.4, AST 34, ALT 32, Alkaline Phosphatase 58, Troponin I < 0.01, Total Protein 7.1, Albumin 4.3, Globulin 2.8, Albumin/Globulin Ratio 1.5, Lipase 240 Orders (Tests/Meds): ED MEDICATIONS Generic Name Dose Route Start Last Admin Trade Name Freq PRN Reason Stop Dose Admin Sodium Chloride 8 ml 12/27/24 13:04 12/27/24 13:37 Sodium Chloride 0.9% 10ml Vial IV 01/26/25 13:03 8 ml NEEDED PRN Administration dilute pepcid Discontinued Medications Generic Name Dose Route Start Last Admin Trade Name Freq PRN Reason Stop Dose Admin Aspirin 243 mg 12/27/24 13:42 12/27/24 14:27 Aspirin 81mg Chewable Tablet PO 12/27/24 13:43 243 mg ONCE ONE Administration Famotidine 20 mg 12/27/24 13:04 12/27/24 13:37 Famotidine 20mg/2ml Vial IV 12/27/24 13:05 20 mg ONCE ONE Administration Sodium Chloride 1,000 mls @ 999 mls/hr 12/27/24 13:32 12/27/24 13:39 Sod Chlor 0.9% 1000ml Bag IV 12/27/24 14:32 999 mls/hr .Q1H1M ONE Administration Iopamidol 75 ml 12/27/24 13:43 12/27/24 13:44 Iopamidol-370 (76%);100ml Bottle IV 12/27/24 13:44 75 ml ONCE ONE Administration Sodium Chloride 10 ml 12/27/24 13:43 12/27/24 13:44 Sodium Chloride 0.9% 10ml Syr (Rad Only) IV 12/27/24 13:44 10 ml ONCE ONE Administration ORDERS Category Date Time Status CT abdomen pelvis w con Stat Cat Scan 12/27/24 13:04 Completed Chest XR -- portable [XR chest portable] Stat Exams 12/27/24 13:05 Completed CBC [Complete Blood Count Auto Diff] Stat Lab 12/27/24 12:58 Completed Comprehensive Metabolic Panel Stat Lab 12/27/24 12:58 Completed D-Dimer Stat Lab 12/27/24 12:58 Completed Lipase Stat Lab 12/27/24 12:58 Completed Magnesium Stat Lab 12/27/24 12:58 Completed Trop I [Troponin I] Stat Lab 12/27/24 12:58 Completed Troponin I Q3H Lab 12/27/24 16:15 Ordered Troponin I Q3H Lab 12/27/24 19:15 Ordered ECG Data Tracing #1: I reviewed this ECG and interpreted as documented below: Sinus bradycardia, no ST elevation or depression. QTc normal at 406 HEART Score HEART Score: 2 Critical Care <Kala Johnson (ED), VALUE ADVISOR - Last Filed: 12/27/24 15:08> Critical Care Time Critical Care Time: No
[2024-12-27 13:25] LABS: Alanine Aminotransferase 32 U/L (12-78); Albumin Level 4.3 g/dl (3.5-5.0); Albumin/Globulin Ratio 1.5 (1.1-1.8); Alkaline Phosphatase 58 U/L (38-126); Anion Gap 9.1 mEq/L (5-15); Aspartate Amino Transferase 34 U/L (14-36); Bilirubin,Total 0.4 mg/dl (0.2-1.3); Blood Urea Nitrogen 12 mg/dl (7-17); Calcium 9.2 mg/dl (8.4-10.2); Carbon Dioxide 25 mmol/L (22.0-30.0); Chloride 106 mmol/L (98-107); Creatinine Clearance Estimated 65 mL/min (50-200); Creatinine,Serum 1.20 mg/dl (0.52-1.04); Estimated Glomerular Filt Rate 46 ml/min (>60); GFR (African American) 56 ML/MIN (>60); Globulin 2.8 g/dL (1.3-3.2); Glucose 95 mg/dl (74-100); Lipase 240 U/L (23-300); Magnesium 1.9 mg/dl (1.6-2.3); Potassium 4.1 mmoL/L (3.5-5.1); Sodium 136 mmol/L (136-145); Total Protein,Serum 7.1 g/dl (6.3-8.2)
[2024-12-27 13:29] LABS: D-Dimer 0.53 ug/mL (0.0-0.5)
[2024-12-27 13:31] VITALS: BP 156/74; PULSE 59; O2SAT 96
--- NOTE | 2024-12-27 13:36 | ECG_ITS ---
APPROVED REPORT Exam: Resting ECG HR:52 bpm ECG Measurements Heart Rate 52 AXES KS 164 P 60 QRSd 81 QRS 54 QT 427 T 29 QTc 406 Conclusion SINUS BRADYCARDIA LOW QRS VOLTAGE IN PRECORDIAL LEADS [QRS DEFLECTION < 1.0 mV IN CHEST LEADS] BORDERLINE ECG UNCONFIRMED REPORT Sinus bradycardia. No ST elevation or depression. QTc normal at 406 Electronically signed by : JEREMIE ANTONY, 12/27/2024 15:24:42
[2024-12-27] MEDS: FAMOTIDINE 20MG/2ML VIAL 20 MG IV (13:37)
[2024-12-27] MEDS: SODIUM CHLORIDE 0.9% 10ML VIAL 8 ML IV (13:37)
[2024-12-27] MEDS: 0.9 % SODIUM CHLORIDE 1000ML 1,000 ML 999 ML IV (13:39)
[2024-12-27 13:42] LABS: Troponin I < 0.01 ng/ml (0.00-0.034)
[2024-12-27] MEDS: IOPAMIDOL-370 (76%);100ML BOTTLE 75 ML IV (13:44)
[2024-12-27] MEDS: SODIUM CHLORIDE 0.9% 10ML SYR (RAD ONLY) 10 ML IV (13:44)
[2024-12-27] MEDS: ASPIRIN 81MG CHEWABLE TABLET 243 MG PO (14:27)
[2024-12-27 15:23] VITALS: BP 189/98; PULSE 59; RESP 18; TEMP 36.5; O2SAT 96
== END 2024-12-27 15:24 | disposition home or self-care (01) ==
PROVIDERS: Nurse Practitioner; Emergency Provider Student in an Organized Health Care Education/Training Program; PCP Family Medicine
DX: R10.9 Unspecified abdominal pain (principal); I10 Essential (primary) hypertension; E78.5 Hyperlipidemia, unspecified
CPT/HCPCS: 71045; 74177; 80053; 83690; 83735; 84484; 85025; 85378; 93005; 96361; 96374; 99285; J1308; J7030; Q9967

== ENCOUNTER 2025-01-01 13:49 | Outpatient (CLI) | payer MEDICAID, SELFPAY ==
--- OUTSIDE RECORDS SUMMARY | 2025-01-01 13:52 | XMS_ITS | Clinical Summary ---
Author Organization [facility] Address [address] [place] [address] Care Team Providers Care Trader Name Role Phone Dong Majort Janie Unavailable [phone] Servando Lu MD Primary Care Provider Ella Martinez Unavailable Unavailable Aleja Smart DMD Unavailable [phone] Allergies No known active allergies Medications [...] 04/23/2023 10/22/2022, 02/15/2022 Dental Prophylaxis 04/23/2023 10/22/2022 [id number] Vaccine (1 - season) 2024 UKY-Influenza Vaccine [...] Patient has decision-making capacity? Yes Care Teams Trader Relationship Specialty Start Date End Date Servando Lu MD [address] [place] [id number] PCP - General Family Medicine 10/22/22 Carmen Major [address] [place] [id number] Dentist 03/09/22 Ella Vo Dental Student Dental Retail Team Leader 05/28/23 Aelja Smart DMD [address] [place] [address], [address] [place] [id number] Senior Security Analyst 08/28/24
--- OUTSIDE RECORDS SUMMARY | 2025-01-01 13:52 | XMS_ITS | Encounter Summary ---
Author Organization Healthcare Address [address] [place] [address] Care Team Providers Care Chrome Cleaner Name Role Phone Pcp, No Primary Care Provider UnavailCatia Odonnella Tatyana DMD Unavailable [phone] Aftab Riggins Unavailable Unavailable Carmen Major Janie Unavailable [phone] Day, Kristen P DMD Unavailable [phone] Servando Lu MD Primary Care Provider Evelyn Ella Gallego Unavailable Unavailable Aleja Smart DMD Unavailable [phone] Reason for Referral * Consultation (Routine) - Closed Specialty Diagnoses / Procedures Referred By Veronica chacko Referred To Contact Neurosurgery Diagnoses Low back pain, unspecified back pain laterality, unspecified chronicity, unspecified whether sciatica present Lexi Zamora APRN [address] [place] [address] Phone: tel: fax: Referral ID Status Reason Start Date Expiration Date V isits Requested Visits Authorized [id number] Closed Specialty Services Required 02/07/2022 08/09/2023 1 1 Encounter Details Date Type Department Care Team (Late st Contact Info) Description 02/07/2022 [facility] [address] [place] [address] Lexi Zamora APRN [address] [place] [address] Symptoms referable to back (Primary [...] present documented in this encounter Care Teams Chrome Cleaner Relationship Specialty Start Date End Date Pcp, No [address] [place] [address] PCP - General Family Medicine 12/27/21 10/21/22 Servando Lu MD [address] [place] [address] PCP - General Family Medicine 10/22/22 Trinity Padilla DMD [address] [phone] Dentist Dental Spread Cutter 12/28/21 [employer] Dental Student Dental Spread Cutter 12/28/21 06/05/22 Carmen Major [address] [place] [address] Dentist 03/09/22 Kristen Song DMD [address] [place] [id number] Dental Student Dental Spread Cutter 06/06/22 Ella Vo Dental Student Dental Spread Cutter 05/28/23 Aleja Smart, BRIE [address] [facility], [address] [place] [address] Manager Secondary 08/28/24 documented as of this encounter
--- NOTE | 2025-01-01 14:15 | CA_ITS ---
FINAL REPORT TECHNIQUE: Prakash scale, color and spectral doppler images of the bilateral carotid arteries were obtained. CLINICAL HISTORY: TIA,HTN COMPARISON: None FINDINGS: Peak systolic velocity in the right internal carotid artery is 126 cm/sec. The internal carotid to common carotid artery ratio is 2.3. There is no significant carotid artery stenosis and mild plaque formation. The right vertebral artery is normal in direction. Peak systolic velocity in the left internal carotid artery is 90 cm/sec. The internal carotid to common carotid artery ratio is 1.2. There is no significant carotid artery stenosis and mild plaque formation. The left vertebral artery is normal in direction. IMPRESSION: No ultrasound evidence of hemodynamically significant carotid artery stenosis. Normal peak systolic velocities and normal internal to common carotid artery ratios bilaterally. Reviewed, Interpreted and Dictated by Ramón Beth MD Transcribed by Debbie Hill Authenticated and [facility]
--- NOTE | 2025-01-01 15:00 | MM_ITS ---
PROCEDURE INFORMATION: Exam: MG Bilateral Screening 3D Mammography Exam date and time: 01/01/2025 2:04 PM Age: 59 years old Clinical indication: Screening examination TECHNIQUE: Imaging protocol: Bilateral Screening tomosynthesis and 2D mammography including computer-aided detection (CAD) when performed. COMPARISON: No relevant prior studies available. FINDINGS: MAMMOGRAPHY: Breast composition: There are scattered areas of fibroglandular density. Mass: None. Architectural distortion: None. Calcifications: No suspicious calcifications. Asymmetric density: None. Skin thickening: None. Axillary adenopathy: None. IMPRESSION: No mammographic evidence of malignancy. Annual screening is recommended unless otherwise clinically indicated. ASSESSMENT: BI-RADS Category 1: Negative.
== END 2025-01-01 23:59 | disposition home or self-care (01) ==
LOC: RT 13:49
PROVIDERS: PCP Family Medicine; Visit Provider Family Medicine
DX: Z12.31 Encounter for screening mammogram for malignant neoplasm of breast (principal); G45.9 Transient cerebral ischemic attack, unspecified; E78.5 Hyperlipidemia, unspecified; I10 Essential (primary) hypertension; R92.323 Mammographic fibroglandular density, bilateral breasts; R07.89 Other chest pain; Z72.0 Tobacco use
CPT/HCPCS: 77063; 77067; 93880

== ENCOUNTER 2025-01-25 14:25 | Outpatient (CLI) | payer MEDICAID, SELFPAY | END 2025-01-25 23:59 | disposition home or self-care (01) | LOC: RT 14:27 | PROVIDERS: PCP Family Medicine; Visit Provider Physician Assistant | DX: Z01.810 Encounter for preprocedural cardiovascular examination (principal) | CPT/HCPCS: 93225; 93227 ==

== ENCOUNTER 2025-01-28 12:41 | Outpatient (CLI) | payer MEDICAID, SELFPAY ==
--- OUTSIDE RECORDS SUMMARY | 2025-01-28 12:50 | XMS_ITS | Clinical Summary ---
Author Organization [facility] Address [address] [place] [address] Care Team Providers Care Consumer Loan Underwriter Name Role Phone Dong Maojrt Janie Unavailable [phone] Servando Lu MD Primary Care Provider Ella Martinez Unavailable Unavailable Aleja Smart DMD Unavailable [phone] Allergies No known active allergies Medications [...] Date Smoking Tobacco: Every Day Cigarettes 1 14.9 Started: 03/15/2010 Smokeless Tobacco: Former Tobacco Cessation:Ready [...] 04/23/2023 10/22/2022, 02/15/2022 Dental Prophylaxis 04/23/2023 10/22/2022 [id number] Vaccine (1 - season) 2024 [facility]-Influenza Vaccine (#1) 2024 Dental X-Ray: Full Mouth 12/28/2024 12/27/2021 [facility]-Obesity Intervention Completed 023, 04/30/2022, 03/09/2022 HPV Vaccines (No Doses Required) Completed [facility]Y-HIB Vaccines Aged Out No longer e [...] Most Recently Relevant to Health Maintenance Insurance [facility] MEDICAID MEDICAID [facility] Advance Directives * Full Code (Latest Code Status on File) Date Activated Date Inactivated Comments 11/02/2022 12:16 PM 11/03/2022 1:50 PM Question Answer Comments Patient has decision-making capacity? Yes Care Teams Consumer Loan Underwriter Relationship Specialty Start Date End Date Servando Lu MD [address] [place] [id number] PCP - General Family Medicine 10/22/22 Carmen Major [address] [place] [address] Dentist 03/09/22 Ella Vo Dental Student Dental Database Architect 05/28/23 Aleja Smart DMD [address] [facility], [address] [place] [id number] Analysis Specialist 08/28/24
--- OUTSIDE RECORDS SUMMARY | 2025-01-28 12:50 | XMS_ITS | Encounter Summary ---
Author Organization [facility] Address [address] [place] [address] Care Team Providers Care Cooler Tender Name Role Phone Pcp, No Primary Care Provider UnavailCtaia Odonnella Tatyana DMD Unavailable Aftab Riggins Unavailable Unavailable Carmen Major Janie Unavailable [phone] Day, Kristen P DMD Unavailable [phone] Servando Lu MD Primary Care Provider Evelyn Ella Gallego Unavailable Unavailable Aleja Smart DMD Unavailable [phone] Reason for Referral * Consultation (Routine) - Closed Specialty Diagnoses / Procedures Referred By Veronica chacko Referred To Contact Neurosurgery Diagnoses Low back pain, unspecified back pain laterality, unspecified chronicity, unspecified whether sciatica present Lexi Zamora APRN [address] [place] [address] Phone: tel: fax: Referral ID Status Reason Start Date Expiration Date V isits Requested Visits Authorized [id number] Closed Specialty Services Required 02/07/2022 08/09/2023 1 1 Encounter Details Date Type Department Care Team (Late st Contact Info) Description 02/07/2022 Community [facility] [address] [place] [address] Lexi Zamora APRN [address] [place] [address] Symptoms referable to back (Primary [...] present documented in this encounter Care Teams Cooler Tender Relationship Specialty Start Date End Date Pcp, No [address] [place] [address] PCP - General Family Medicine 12/27/21 10/21/22 Servando Lu MD [address] [place] [address] PCP - General Family Medicine 10/22/22 Trinity Padilla DMD [address] [phone] Dentist Dental Senior Graphic Designer 12/28/21 [employer] Dental Student Dental Senior Graphic Designer 12/28/21 06/05/22 Carmen Major [address] [place] [address] Dentist 03/09/22 Kristen Song DMD [address] [place] [id number] Dental Student Dental Senior Graphic Designer 06/06/22 Ella Vo Dental Student Dental Senior Graphic Designer 05/28/23 Aleja Smart, BRIE 800 [facility], [address] [place] [address] Figurine Maker 08/28/24 documented as of this encounter
== END 2025-01-28 23:59 | disposition home or self-care (01) ==
LOC: RT 12:42
PROVIDERS: PCP Family Medicine; Visit Provider Physician Assistant
DX: I63.9 Cerebral infarction, unspecified (principal)
CPT/HCPCS: 93270

== ENCOUNTER 2025-02-01 12:53 | Outpatient (CLI) | payer MEDICAID, SELFPAY ==
--- NOTE | 2025-02-01 13:00 | CA_ITS ---
APPROVED REPORT EXAM: Comprehensive 2D, Doppler, and color-flow Echocardiogram Exhaust Equipment Operator: Natalya Ga RT(R) Ht: 5 ft 5 in Wt: 174lbs BSA: 1.86 BP: 145/90 mmHg Indications: pre op for colonoscopy, hx cryptogenic stroke, HTN, HLD, GARRETT 2D Dimensions LA Volume 12.90 mL LA Volume Index 6.90 mL/m2 (M/F) 16-34 EF AP4 45.00 % GL Strain -11.7 % M-Mode Dimensions RVDd 2.68 cm (0.9-2.6) LA Diam 3.12 cm (1.9-4.0) LVDd 3.83 cm (3.5-5.7) LVDs 2.90 cm (3.5-5.7) IVSd 0.89 cm (0.6-1.1) PWd 0.82 cm (0.6-1.1) EF (Teich) 49.00% FS 24.30% EDV (Teich) 63.10 mL ESV (Teich) 32.20 mL LV Diastology E Decel Time 203 (160-240 msec) E/A Ratio 0.8 Mitral Valve MV E Max Irchar. 80.0 (40-130 cm/s) MV A Velocity 96.0 (40-130 cm/s) E/A Ratio 0.83 MV PHT 60.0 ms Left Ventricle The left ventricle is normal size. Left ventricular systolic function is normal. The left ventricular ejection fraction is within the normal range. There is increased left ventricular wall thickness. There is normal LV segmental wall motion. The left ventricular diastolic function is normal. LVEF is 55% Right Ventricle The right ventricle is normal size. The right ventricular systolic function is normal. Atria The left atrium size is normal. The right atrium size is normal. There is no color Doppler evidence of interatrial shunt. Aortic Valve The aortic valve opens well. There is no hemodynamically significant aortic valvular stenosis. Mild aortic regurgitation is present. Mitral Valve The mitral valve is normal in structure. No evidence of mitral valve stenosis. Mild mitral regurgitation is present. Tricuspid Valve The tricuspid valve leaflets are thin and pliable. Trace tricuspid regurgitation. There is insufficient TR jet to estimate RVSP. Pulmonic Valve The pulmonary valve is grossly normal in structure. Trace pulmonic valve regurgitation is present. Great Vessels The aortic root is normal in size. IVC is normal in size and collapses >50% with inspiration. Pericardium There is no pericardial effusion. Other Information Study Quality: Technically Difficult Conclusion Normal biventricular systolic function. Mild AI, mild MR. In the setting of reported cryptogenic stroke, further evaluation is suggested with non-urgent limited TTE + bubble study (to evaluate for interatrial shunt) and ultrasound enhancing agent (to evaluate for LV thrombus). Electronically signed by : Nasima Diggs MD 02/11/2025 13:47:14
--- OUTSIDE RECORDS SUMMARY | 2025-02-01 13:00 | XMS_ITS | Clinical Summary ---
Author Organization [facility] Address [address] [place] [address] Care Team Providers Care Spiral Binder Name Role Phone Dong Majort Janie Unavailable [phone] Servando Lu MD Primary Care Provider Ella Martinez Unavailable Unavailable Aleja Smatr DMD Unavailable [phone] Allergies No known active allergies Medications [...] 04/23/2023 10/22/2022, 02/15/2022 Dental Prophylaxis 04/23/2023 10/22/2022 [id number] Vaccine (1 - season) 2024 [facility]-Influenza Vaccine [...] Most Recently Relevant to Health Maintenance Insurance [facility] MEDICAID MEDICAID [facility] Advance Directives * Full Code (Latest Code Status on File) Date Activated Date Inactivated Comments 11/02/2022 12:16 PM 11/03/2022 1:50 PM Question Answer Comments Patient has decision-making capacity? Yes Care Teams Spiral Binder Relationship Specialty Start Date End Date Servando Lu MD [address] [place] [address] PCP - General Family Medicine 10/22/22 Carmen Major [address] [place] [address] Dentist 03/09/22 Ella Vo Dental Student Dental Textile Machine Operator 05/28/23 Aleja Smart DMD [address] [facility], [address] [place] [phone] Billing Representative 08/28/24
--- OUTSIDE RECORDS SUMMARY | 2025-02-01 13:00 | XMS_ITS | Encounter Summary ---
Author Organization [facility] Address [address] [place] [address] Care Team Providers Care Dock Clerk Name Role Phone Pcp, No Primary Care Provider UnavailCatia Odonnella Tatyana DMD Unavailable [phone] Aftab Riggins Unavailable Unavailable Carmen Major Janie Unavailable [phone] Day, Kristen P DMD Unavailable [phone] Servando Lu MD Primary Care Provider Evelyn Ella Gallego Unavailable Unavailable Aleja Smart DMD Unavailable [phone] Reason for Referral * Consultation (Routine) - Closed Specialty Diagnoses / Procedures Referred By Veronica chacko Referred To Contact Neurosurgery Diagnoses Low back pain, unspecified back pain laterality, unspecified chronicity, unspecified whether sciatica present Lexi Zamora APRN [address] [place] [address] Phone: tel: fax: Referral ID Status Reason Start Date Expiration Date V isits Requested Visits Authorized [id number] Closed Specialty Services Required 02/07/2022 08/09/2023 1 1 Encounter Details Date Type Department Care Team (Late st Contact Info) Description 02/07/2022 Community [facility] [address] [place] [address] Lexi Zamora APRN [address] [place] [address] Symptoms referable to back (Primary [...] present documented in this encounter Care Teams Dock Clerk Relationship Specialty Start Date End Date Pcp, No [address] [place] [address] PCP - General Family Medicine 12/27/21 10/21/22 Servando Lu MD [address] [place] [address] PCP - General Family Medicine 10/22/22 Trinity Padilla DMD [address] [phone] Dentist Dental Chip Loft Worker 12/28/21 [employer] Dental Student Dental Chip Loft Worker 12/28/21 06/05/22 Carmen Major [address] [place] [address] Dentist 03/09/22 Kristen Song DMD [address] [place] [phone] Dental Student Dental Chip Loft Worker 06/06/22 Ella Vo Dental Student Dental Chip Loft Worker 05/28/23 Aleja Smart, BRIE 800 [facility], [address] [place] [address] Telephone Sex Worker 08/28/24 documented as of this encounter
== END 2025-02-01 23:59 | disposition home or self-care (01) ==
LOC: RT 12:54
PROVIDERS: PCP Family Medicine; Visit Provider Physician Assistant
DX: Z01.810 Encounter for preprocedural cardiovascular examination (principal); I08.0 Rheumatic disorders of both mitral and aortic valves; I63.9 Cerebral infarction, unspecified; I10 Essential (primary) hypertension; E78.5 Hyperlipidemia, unspecified; G47.33 Obstructive sleep apnea (adult) (pediatric)
CPT/HCPCS: 93306